=== PATIENT | female | born 1955 | race Caucasian/White ===

== ENCOUNTER → 2016-04-13 | Outpatient (CLI) | payer MEDICARE ==
--- NOTE | 2016-04-13 13:43 | REP ---
MRI BRAIN WITHOUT CONTRAST: 04/13/2016 COMPARISON: 12/25/2013 MRI without and with contrast. CLINICAL HISTORY: Follow-up meningioma. TECHNIQUE: Our standard noncontrast brain protocol was utilized . Sagittal and axial sequences only. FINDINGS: On the axial T2 images, the parasagittal parietal slightly hyperintense mass on the T2 images has a length of 32 mm, unchanged from the previous study. Its transverse diameter is approximately 27 mm on this exam about 26 mm x my direct measurement on the previous study in coronal contrast sequence. There is no midline shift. Lateral ventricles are symmetric and without dilatation or displacement from the midline, third and fourth ventricles also unremarkable. The basal ganglia are unremarkable. The periventricular and subcortical white matter shows some scattered minor hyperintense T2 and FLAIR signal foci suggesting small vessel ischemic change. There is no evidence of acute ischemia on diffusion weighted images or the ADC mapping sequences. The absence of contrast and coronal images limit evaluation of the meningioma. It is grossly unchanged in size given these limitations. There are no other extra-axial masses or intracranial lesions. The brainstem and cerebellum grossly intact. Cortical stripe preserved with no mass or mass effect. No intra or extra-axial bleed. Seventh/eighth cranial nerve complexes, mastoids and visualized sinuses are clear. Orbits and contents unremarkable. The corpus callosum, optic chiasm and pituitary are intact. There is no cerebellar tonsillar ectopia. IMPRESSION: 1. Parasagittal right parietal meningioma in the extra-axial location at the vertex of the brain although direct comparison is difficult in the absence of contrast and an additional coronal sequence. The appearance of the lesion overall is grossly unchanged. Its relationship to the sagittal sinus cannot be discerned on this study. No other extra-axial or intracranial lesions. 2. Chronic small vessel white matter ischemic changes noted and stable. Signed by Declan Riley MD 04/13/2016 02:30 P
== END ==
LOC: M RAD 07:51
PROVIDERS: ATTEND Psychiatry & Neurology Neurology
DX: D32.9 Benign neoplasm of meninges, unspecified (principal); I73.9 Peripheral vascular disease, unspecified; M54.12 Radiculopathy, cervical region; M54.16 Radiculopathy, lumbar region

== ENCOUNTER → 2016-04-17 | Outpatient (CLI) | payer MEDICARE ==
--- NOTE | 2016-04-17 17:42 | REP ---
MRI CERVICAL SPINE WITHOUT CONTRAST: 04/17/2016. Comparison: MRI 08/10/2014, x-ray 02/12/2014. Clinical history: Neck pain, radiculopathy. Technique sagittal T1, T2 and STIR images with axial T1-T2 sequences provided. The x-rays from 2013 show anterior plate and screw fixation going at least from C5 through T1 and posterior fusion with screws and arch bars from C4 through the upper thoracic spine to T3. There is magnetic susceptibility artifact from the screws and plate anteriorly. There is also posterior postoperative change with some susceptibility artifact. Vertebral body heights from C2-C4 were intact. Disc space heights at C2-3 through C4-5 were maintained. Although there is loss of disc water signal. Screws project into the C5 through T2 levels on this field of view and from anterior and their posterior paraspinal fusion devices with susceptibility artifact as well. The cervical cord shows no intrinsic signal abnormality, syrinx, myelomalacia or mass. The craniocervical junction shows no cerebellar tonsillar ectopia. The dens is intact. At C2-C3 there is no disc bulge or herniation and no spinal or foraminal stenosis. At C3-4 mild disc bulge with some facet arthritis. The cross-sectional area of the canal mildly diminished without cord compression. The AP canal diameter is about 9 mm. The foramina are mildly stenotic bilaterally due to combined factors. At C4-5 there is mild disc bulge abutting the ventral thecal sac flattening it and thinning the subarachnoid space. There is central canal stenosis with AP canal diameter just under 8 mm. Foramina are adequate on the left and mildly stenotic on the right due to combined factors. At C5-C6 there is a left paracentral posterior osteophytic spur and flattening of the ventral thecal sac with some loss of subarachnoid space. The AP canal diameter is 8.5 mm mildly stenotic. Foramina show some mild encroachment due to uncinate and facet spurs. At C6-7 there is no significant disc bulge but cross-sectional area canal is stenotic with loss of subarachnoid space. The foramina is adequate. A C7-T1, there is no significant disc bulge but there is some mild central canal stenosis with loss of subarachnoid space. Foramina were adequate. Impression: 1. Multilevel degenerative disc disease with C5 through upper thoracic anterior fusion with plate and screw fixation and posterior effusion as well. The central canal is mildly stenotic without cord compression or disc herniation. Foramina are narrowed at C3-4 and on the right at C4-5, minimally at C5-6. No intrinsic cord signal abnormality, syrinx active cord atrophy, or mass. Signed by Declan iRley MD 04/20/2016 10:18 A
--- NOTE | 2016-04-17 18:23 | REP ---
MRI LUMBAR SPINE WITHOUT CONTRAST: 04/17/2016: Comparison: 02/01/2015 MR, 11/27/2013 x-ray. Clinical history: Spondylosis without myelopathy. Technique: Sagittal T1, T2, STIR with axial T1-T2 sequences. Findings: Sagittal images show the normal lumbar lordosis maintained. Vertebral body heights and marrow signal are normal from T12-S2. Disc space heights are slightly narrowed at L3-4 and L5, S1 with loss of disc water signal at all levels from the L2-3 and relatively preserving T12-L1. Conus terminates at the level of L1-2. At T11-12 there is minimal disc bulge but no spinal or foraminal stenosis. At T12-L1 and L1-2. There is no disc bulge herniation and no spinal or foraminal stenosis. At L2-3 there is mild diffuse disc bulge without central canal stenosis. Mild hypertrophic facet and ligamentum changes without foraminal encroachment. At L3-L4 there is broad-based disc bulge. This abuts the left L4 nerve root in the canal but does not displace it. The AP canal diameter is mildly diminished but there is no significant crowding of the nerve roots. Foramina are adequate. That over -05. There is a broad-based disc bulge with ligamentum flavum and facet hypertrophy. Minimal enter anterolisthesis of L4 on five is noted with no change. Flattening the ventral thecal sac by a minimal disc bulge noted. Cross-sectional area of the canal is mildly diminished due to that and both ligamentum and facet hypertrophy. However the foramina appear adequate. At L5-S1 there is a minimal disc bulge without spinal or foraminal stenosis. Facet hypertrophy noted. IMPRESSION: 1. Degenerative disc disease with diffuse disc bulges throughout the lumbar spine without spinal or foraminal stenosis L1-2 through L3-4. Mild central canal stenosis at the L4-5 level is again seen. However, the combined factors are unchanged and the canal stenosis is mild without nerve root compression. Signed by Declan Riley MD 04/20/2016 10:18 A
== END ==
LOC: M RAD 15:16
PROVIDERS: ATTEND Psychiatry & Neurology Neurology
DX: M50.20 Other cervical disc displacement, unspecified cervical region (principal); M48.02 Spinal stenosis, cervical region; M51.36 Other intervertebral disc degeneration, lumbar region; M51.26 Other intervertebral disc displacement, lumbar region; M48.06 Spinal stenosis, lumbar region; M54.12 Radiculopathy, cervical region; M54.16 Radiculopathy, lumbar region; D32.9 Benign neoplasm of meninges, unspecified; Z98.1 Arthrodesis status

== ENCOUNTER → 2016-04-28 | Outpatient (CLI) | payer MEDICARE ==
[2016-04-28 20:06] LABS: VITAMIN B12 LEVEL 368 PG/ML (247-911)
[2016-04-28 20:07] LABS: FOLATE 12.1 NG/ML (>5.4)
[2016-04-28 20:11] LABS: ALBUMIN 3.7 GM/DL (3.2-5.2); ALBUMIN/GLOBULIN RATIO 1.06 (1.00-1.93); ALKALINE PHOSPHATASE 89 U/L (45-117); ALT/SGPT 57 U/L (12-78); ANION GAP 11 MEQ/L (8-16); AST/SGOT 47 U/L (15-37); BILIRUBIN,TOTAL 0.4 MG/DL (0.2-1.0); BLOOD UREA NITROGEN 20 MG/DL (7-18); CALCIUM LEVEL 9.3 MG/DL (8.5-10.1); CARBON DIOXIDE LEVEL 28 MEQ/L (21-32); CHLORIDE LEVEL 99 MEQ/L (98-107); GLOMERULAR FILTRATION RATE > 60.0 (>51); GLUCOSE, FASTING 135 MG/DL (70-105); POTASSIUM SERUM 4.6 MEQ/L (3.5-5.1); SODIUM LEVEL 138 MEQ/L (136-145); TOTAL PROTEIN 7.2 GM/DL (6.4-8.2)
[2016-04-30 10:57] LABS: ALBUMIN 3.94 GM/DL (3.29-5.55); ALBUMIN % 54.7 % (55.8-66.1); GAMMA GLOBULIN % 12.3 % (11.1-18.8)
[2016-05-02 14:20] LABS: VITAMIN E LEVEL 8.8 mg/L (5.3-16.8)
== END ==
LOC: M SMT 12:35
PROVIDERS: ATTEND Psychiatry & Neurology Neurology
DX: G62.9 Polyneuropathy, unspecified (principal); E11.9 Type 2 diabetes mellitus without complications; R53.83 Other fatigue; M62.81 Muscle weakness (generalized)

== ENCOUNTER → 2016-04-28 | Outpatient (CLI) | payer MEDICARE ==
[2016-04-28 19:57] LABS: BASO % 0.4 % (0.0-1.0); EOS # 0.2 K/mm3 (0.0-0.50); EOS % 2.4 % (0.0-3.0); LARGE UNSTAINED CELL # 0.2 K/mm3 (0.0-0.4); LARGE UNSTAINED CELL % 2.6 % (0.0-4.0); LYMPH # 1.3 K/mm3 (1.5-4.5); LYMPH % 19.8 % (24.0-44.0); MEAN CORPUSCULAR HEMOGLOBIN 26.7 pg (27.0-33.0); MEAN CORPUSCULAR VOLUME 86.2 fl (80.0-96.0); MONO # 0.3 K/mm3 (0.0-0.8); MONO % 4.6 % (0.0-5.0); NEUTROPHILS # 4.6 K/mm3 (1.8-7.7); NEUTROPHILS % 70.2 % (36.0-66.0); PLATELET COUNT, AUTOMATED 310 k/mm3 (150-450); RED CELL DISTRIBUTION WIDTH 14.2 % (11.5-14.5); WHITE BLOOD COUNT 6.6 K/mm3 (4.0-10.0)
[2016-04-28 20:16] LABS: FOLATE 10.2 NG/ML (>5.4); VITAMIN B12 LEVEL 378 PG/ML (247-911)
[2016-04-28 20:18] LABS: ERYTHROCYTE SEDIMENTATION RATE 54 mm/hr (0-30)
[2016-04-28 20:35] LABS: ANION GAP 15 MEQ/L (8-16); BLOOD UREA NITROGEN 22 MG/DL (7-18); CALCIUM LEVEL 9.5 MG/DL (8.5-10.1); CARBON DIOXIDE LEVEL 25 MEQ/L (21-32); CHLORIDE LEVEL 99 MEQ/L (98-107); CREATININE FOR GFR 0.97 MG/DL (0.55-1.02); FREE T4 1.43 NG/DL (0.76-1.46); GLOMERULAR FILTRATION RATE > 60.0 (>51); GLUCOSE, FASTING 141 MG/DL (70-105); POTASSIUM SERUM 4.3 MEQ/L (3.5-5.1); SODIUM LEVEL 139 MEQ/L (136-145)
== END ==
LOC: M SMT 12:31
PROVIDERS: ATTEND Physician Assistant Medical
DX: E11.9 Type 2 diabetes mellitus without complications (principal); R53.83 Other fatigue; M62.81 Muscle weakness (generalized); R20.2 Paresthesia of skin

== ENCOUNTER → 2016-04-29 | Outpatient (REF) | payer MEDICARE | LOC: M LAB REF 16:48 | PROVIDERS: ATTEND Physician Assistant Medical | DX: E11.9 Type 2 diabetes mellitus without complications (principal); R53.83 Other fatigue; M62.81 Muscle weakness (generalized); R20.2 Paresthesia of skin ==

== ENCOUNTER → 2017-01-22 | Outpatient (CLI) | payer MEDICARE ==
[2017-01-22 14:34] LABS: ALBUMIN 3.7 GM/DL (3.2-5.2); ALKALINE PHOSPHATASE 92 U/L (45-117); ALT/SGPT 70 U/L (12-78); ANION GAP 11 MEQ/L (8-16); AST/SGOT 35 U/L (7-37); BILIRUBIN,TOTAL 0.3 MG/DL (0.2-1.0); BLOOD UREA NITROGEN 20 MG/DL (7-18); CALCIUM LEVEL 9.6 MG/DL (8.8-10.2); CARBON DIOXIDE LEVEL 28 MEQ/L (21-32); CHLORIDE LEVEL 101 MEQ/L (98-107); CHOLESTEROL LEVEL 218 MG/DL (<200); CREATININE FOR GFR 0.91 MG/DL (0.55-1.02); GLOMERULAR FILTRATION RATE > 60.0 (>45); GLUCOSE, FASTING 134 MG/DL (80-110); POTASSIUM SERUM 4.7 MEQ/L (3.5-5.1); SODIUM LEVEL 140 MEQ/L (136-145); TOTAL PROTEIN 7.4 GM/DL (6.4-8.2); TRIGLYCERIDES LEVEL 244 MG/DL (<150)
== END ==
LOC: M SMT 10:29
PROVIDERS: ATTEND Physician Assistant Medical
DX: Z00.00 Encounter for general adult medical examination without abnormal findings (principal); E11.9 Type 2 diabetes mellitus without complications; I10 Essential (primary) hypertension; E78.5 Hyperlipidemia, unspecified

== ENCOUNTER → 2017-01-28 | Outpatient (CLI) | payer MEDICARE ==
--- NOTE | 2017-01-28 13:50 | REP ---
Clinical: Pain with decreased range of motion. Technique: AP, lateral, bilateral oblique views of the left knee. Comparison: Right knee dated 12/01/2012. Findings: Advanced tricompartmental osteoarthritic degenerative changes includes osteophytosis, subchondral sclerosis and joint space narrowing. Small suprapatellar effusion cannot be excluded. No acute fracture or dislocation. Impression: Advanced tricompartmental osteoarthritic degenerative changes. Signed by Alek Cali MD 01/28/2017 01:41 P
== END ==
LOC: M SMT 12:22
PROVIDERS: ATTEND Physician Assistant Medical
DX: M25.562 Pain in left knee (principal)

== ENCOUNTER 2018-01-10 13:10 | Emergency (ER) | payer MEDICARE ==
[2018-01-10] MEDS: NORCO, ANEXSIA 5/325MG TABLET (HYDROcodone/ACETAMINOPHEN) PO (14:10)
== END 2018-01-10 16:37 | disposition home or self-care (01) ==
LOC: M ED 13:10
DX: S80.02XA Contusion of left knee, initial encounter (principal); W19.XXXA Unspecified fall, initial encounter; Y92.099 Unspecified place in other non-institutional residence as the place of occurrence of the external cause; Y93.69 Activity, other involving other sports and athletics played as a team or group; Y99.9 Unspecified external cause status; I51.9 Heart disease, unspecified; I10 Essential (primary) hypertension; M79.7 Fibromyalgia; M25.752 Osteophyte, left hip; M25.762 Osteophyte, left knee; M25.462 Effusion, left knee; Z79.899 Other long term (current) drug therapy
CPT/HCPCS: 73564

== ENCOUNTER → 2018-07-11 | Outpatient (REF) | payer MEDICARE ==
[~2018-07-11] MED LIST: ATOR1TAB19; DULO1CAP3; FURO40TA2; LISI10TA4; LYRI150C; MORP30TASA
[2018-07-11 19:05] LABS: ALBUMIN 3.6 GM/DL (3.2-5.2); BILIRUBIN,TOTAL 0.3 MG/DL (0.2-1.0); CALCIUM LEVEL 9.3 MG/DL (8.8-10.2); CHOLESTEROL RISK RATIO 5.323 (<5); CREATININE FOR GFR 1.02 MG/DL (0.55-1.30); GLOMERULAR FILTRATION RATE 58.7 (>45); POTASSIUM SERUM 4.1 MEQ/L (3.5-5.1); TOTAL PROTEIN 7.3 GM/DL (6.4-8.2)
[2018-07-11 19:07] LABS: BASO % 0.3 % (0.0-1.0); EOS # 0.2 10^3/uL (0.0-0.50); EOS % 2.5 % (0.0-3.0); HEMATOCRIT 40.4 % (36.0-47.0); LYMPH # 2.1 10^3/uL (1.5-4.5); LYMPH % 21.6 % (24.0-44.0); MEAN CORPUSCULAR HEMOGLOBIN 27.3 pg (27.0-33.0); MEAN CORPUSCULAR HGB CONC 32.2 g/dl (32.0-36.5); MEAN CORPUSCULAR VOLUME 84.7 fl (80.0-96.0); MONO # 0.5 10^3/uL (0.0-0.8); MONO % 5.4 % (0.0-5.0); NEUTROPHILS # 6.7 10^3/uL (1.8-7.7); NEUTROPHILS % 69.9 % (36.0-66.0); PLATELET COUNT, AUTOMATED 309 10^3/uL (150-450); RED BLOOD COUNT 4.77 10^6/uL (4.00-5.40); WHITE BLOOD COUNT 9.5 10^3/uL (4.0-10.0)
== END ==
LOC: M LABDRAW1 17:59
PROVIDERS: ATTEND Physician Assistant Medical
DX: E11.40 Type 2 diabetes mellitus with diabetic neuropathy, unspecified (principal)

== ENCOUNTER → 2018-12-22 | Outpatient (CLI) | payer MEDICARE ==
[~2018-12-22] MED LIST changes: -DULO1CAP3; +DULO1CAP6
--- NOTE | 2018-12-22 16:08 | REP ---
Low-dose lung screening CT of the chest: There are no comparisons. The study is performed without IV contrast. The images are presented at lung windowing only. There are no lung masses or nodules. There are no infiltrates or pleural effusions. Impression: Category one low-dose lung screening chest CT. The probability of malignancy is less than 1%. Depending on risk factors consider annual follow-up low-dose lung screening CT. Electronically Signed by Cristi Miller MD 12/22/2018 03:59 P
== END ==
LOC: M RAD 15:04
PROVIDERS: ATTEND Physician Assistant Medical
DX: Z12.2 Encounter for screening for malignant neoplasm of respiratory organs (principal); Z87.891 Personal history of nicotine dependence

== ENCOUNTER → 2019-01-11 | Outpatient (REF) | payer MEDICARE | LOC: M SFHCPLAZ 11:47 | PROVIDERS: ATTEND Dermatology | DX: C44.311 Basal cell carcinoma of skin of nose (principal); D23.62 Other benign neoplasm of skin of left upper limb, including shoulder | CPT/HCPCS: 11102; 11103; 88305; G0463 ==

== ENCOUNTER → 2019-02-01 | Outpatient (REF) | payer MEDICARE | LOC: M LAB REF 09:46 | PROVIDERS: ATTEND Dermatology | DX: C44.311 Basal cell carcinoma of skin of nose (principal) ==

== ENCOUNTER → 2019-02-07 | Outpatient (REF) | payer MEDICARE | LOC: M LAB REF 17:52 | PROVIDERS: ATTEND Dermatology | DX: L01.00 Impetigo, unspecified (principal) ==

== ENCOUNTER → 2019-03-17 | Outpatient (REF) | payer MEDICARE | LOC: M LAB REF 18:51 | PROVIDERS: ATTEND Dermatology | DX: T14.90XD Injury, unspecified, subsequent encounter (principal) | CPT/HCPCS: 87070; 87077; 87186; G0463 ==

== ENCOUNTER → 2019-04-06 | Outpatient (REF) | payer MEDICARE | LOC: M LAB REF 09:05 | PROVIDERS: ATTEND Dermatology | DX: D48.9 Neoplasm of uncertain behavior, unspecified (principal) | CPT/HCPCS: 11102; 88305; G0463 ==

== ENCOUNTER → 2019-12-06 | Outpatient (CLI) | payer MEDICARE ==
[2019-12-06 18:00] LABS: BASO % 0.4 % (0.0-1.0); EOS # 0.3 10^3/uL (0.0-0.5); HEMATOCRIT 41.1 % (36.0-47.0); HEMOGLOBIN 12.8 g/dl (12.0-15.5); LYMPH # 1.7 10^3/uL (1.5-5.0); LYMPH % 20.5 % (24.0-44.0); MEAN CORPUSCULAR HEMOGLOBIN 27.2 pg (27.0-33.0); MEAN CORPUSCULAR HGB CONC 31.1 g/dl (32.0-36.5); MEAN CORPUSCULAR VOLUME 87.4 fl (80.0-96.0); MONO # 0.4 10^3/uL (0.0-0.8); MONO % 4.9 % (0.0-5.0); NEUTROPHILS # 5.9 10^3/uL (1.5-8.5); NEUTROPHILS % 70.8 % (36.0-66.0); PLATELET COUNT, AUTOMATED 297 10^3/uL (150-450); WHITE BLOOD COUNT 8.4 10^3/uL (4.0-10.0)
[2019-12-06 18:21] LABS: HEMOGLOBIN A1c 8.4 %
[2019-12-06 18:23] LABS: ALBUMIN 3.4 GM/DL (3.2-5.2); ALT/SGPT 57 U/L (12-78); BILIRUBIN,TOTAL 0.2 MG/DL (0.2-1.0); BLOOD UREA NITROGEN 16 MG/DL (7-18); CALCIUM LEVEL 9.5 MG/DL (8.8-10.2); CARBON DIOXIDE LEVEL 27 MEQ/L (21-32); CHLORIDE LEVEL 100 MEQ/L (98-107); CHOLESTEROL LEVEL 194 MG/DL (<200); CHOLESTEROL RISK RATIO 5.705 (<5); CREATININE FOR GFR 0.97 MG/DL (0.55-1.30); GLOMERULAR FILTRATION RATE > 60.0 (>45); GLUCOSE, FASTING 299 MG/DL (70-100); HDL CHOLESTEROL 34 MG/DL (>40); LDL CHOLESTEROL 105 MG/DL (<100); NON-HDL-C 160 MG/DL; POTASSIUM SERUM 4.1 MEQ/L (3.5-5.1); RHEUMATOID FACTOR QUANT < 10.0 IU/ML (<15.0); SODIUM LEVEL 136 MEQ/L (136-145); TOTAL PROTEIN 7.5 GM/DL (6.4-8.2); TRIGLYCERIDES LEVEL 273 MG/DL (<150)
[2019-12-06 18:55] LABS: ERYTHROCYTE SEDIMENTATION RATE 58 mm/hr (0-30)
[2019-12-08 15:07] LABS: ANTINUCLEAR ANTIBODIES DIRECT Negative (Negative)
== END ==
LOC: M PLALAB 15:47
PROVIDERS: ATTEND Family Medicine
DX: E11.40 Type 2 diabetes mellitus with diabetic neuropathy, unspecified (principal); M12.9 Arthropathy, unspecified

== ENCOUNTER 2020-02-10 21:41 | Emergency (ER) | payer MEDICARE ==
[~2020-02-10] VITALS: Ht 175.3 cm; Wt 137.3 kg
[2020-02-10] MEDS ORDERED: MOBI4TAB PO (21:58)
[2020-02-10] MEDS ORDERED: OXYC10TA3 PO (21:58)
[2020-02-10] MEDS ORDERED: SM LTAB5 PO (21:58)
[2020-02-10] MEDS ORDERED: DILT1CAP9 PO (21:58)
[2020-02-10] MEDS ORDERED: GLIP10TA PO (21:58)
[2020-02-10] MEDS ORDERED: METF10004 PO (21:58)
[2020-02-10 22:53] LABS: BASO % 0.3 % (0.0-1.0); EOS # 0.2 10^3/uL (0.0-0.5); EOS % 2.1 % (0.0-3.0); HEMATOCRIT 42.1 % (36.0-47.0); HEMOGLOBIN 13.2 g/dl (12.0-15.5); LYMPH # 1.7 10^3/uL (1.5-5.0); LYMPH % 14.8 % (24.0-44.0); MEAN CORPUSCULAR HEMOGLOBIN 26.6 pg (27.0-33.0); MEAN CORPUSCULAR HGB CONC 31.4 g/dl (32.0-36.5); MEAN CORPUSCULAR VOLUME 84.9 fl (80.0-96.0); MONO # 0.5 10^3/uL (0.0-0.8); MONO % 4.7 % (0.0-5.0); NEUTROPHILS # 8.9 10^3/uL (1.5-8.5); NEUTROPHILS % 77.8 % (36.0-66.0); PLATELET COUNT, AUTOMATED 348 10^3/uL (150-450); RED BLOOD COUNT 4.96 10^6/uL (4.00-5.40); WHITE BLOOD COUNT 11.4 10^3/uL (4.0-10.0)
--- NOTE | 2020-02-10 23:01 | REPVR ---
PROCEDURE INFORMATION: Exam: CT Head Without Contrast Exam date and time: 02/10/2020 10:47 PM Age: 65 years old Clinical indication: Condition or disease; Convulsions or seizures; Additional info: HX of brain tumor, new onset partial seizures TECHNIQUE: Imaging protocol: Computed tomography of the head without contrast. Radiation optimization: All CT scans at this facility use at least one of these dose optimization techniques: automated exposure control; mA and/or kV adjustment per patient size (includes targeted exams where dose is matched to clinical indication); or iterative reconstruction. COMPARISON: MRI-Brain without Contrast 04/13/2016 8:28 AM FINDINGS: Brain: No acute intracranial hemorrhage or midline shift. Meningioma at the high right frontal convexity on prior MRI is poorly visualized secondary to technique. There is now mild vasogenic edema at the right frontal lobe. No midline shift. Cerebral ventricles: No hydrocephalus. Bones/joints: Hyperostosis frontalis interna. Paranasal sinuses: Visualized sinuses are unremarkable. No fluid levels. Mastoid air cells: Visualized mastoid air cells are well aerated. Soft tissues: Unremarkable. IMPRESSION: 1. No acute intracranial hemorrhage. 2. Meningioma demonstrated on prior MRI examination is poorly demonstrated on current study secondary to technique. There is however new mild vasogenic edema at the right frontal lobe. Electronically signed by: Tramaine Saini On 02/10/2020 23:01:12 PM
[2020-02-10] MEDS ORDERED: LORazepam 2 MG/ML VIAL IV STA (23:15)
[2020-02-10 23:29] LABS: BLOOD UREA NITROGEN 13 MG/DL (7-18); CARBON DIOXIDE LEVEL 26 MEQ/L (21-32); CHLORIDE LEVEL 101 MEQ/L (98-107); CK-MB VALUE MASS < 1.0 NG/ML (<3.6); CPK CREATINE PHOSPHOKINASE 94 U/L (26-192); CREATININE FOR GFR 0.98 MG/DL (0.55-1.30); GLOMERULAR FILTRATION RATE > 60.0 (>45); GLUCOSE, FASTING 255 MG/DL (70-100); MAGNESIUM LEVEL 1.5 MG/DL (1.8-2.4); MB/CK RELATIVE INDEX 1.06 (< OR =4); POTASSIUM SERUM 4.5 MEQ/L (3.5-5.1); SODIUM LEVEL 136 MEQ/L (136-145); TROPONIN I < 0.02 NG/ML (< 0.10)
[2020-02-10] MEDS ORDERED: PERCOCET 5MG/325MG TAB PO ONE (23:45)
--- NOTE | 2020-02-11 01:17 | REPVR ---
PROCEDURE INFORMATION: Exam: MR Head Without Contrast Exam date and time: 02/10/2020 12:39 AM Age: 65 years old Clinical indication: Other: PT states for the last 3 months has had a number of times where left leg constantly moves, left arm retracts and she becomes stiff as a board and feels like she cant breath; Additional info: New onset seizure, edema seen on CT TECHNIQUE: Imaging protocol: MR of the head without contrast. COMPARISON: CT Head without contrast 02/10/2020 10:43 PM FINDINGS: Ventricles demonstrate normal size and configuration for age. Major vascular flow voids at the skull base are preserved. No extra-axial fluid collection. Nonspecific white matter gliosis, probable chronic microvascular ischemia. Meningioma at the superior right cerebral convexity at the vertex measures 4.8 cm AP by 3.3 cm transverse by 2.1 cm cc. Suspect invasion of the adjacent superior sagittal sinus. There is mild adjacent vasogenic edema which is new from prior examination. No diffusion restriction. Visualized paranasal sinuses and mastoid air cells are clear. IMPRESSION: 1. Right-sided meningioma superiorly at the vertex measures 4.8 x 3.3 x 2.1 cm, increased. 2. Suspect invasion of the adjacent superior sagittal sinus best demonstrated on the coronal T2 weighted sequence. 3. There is adjacent vasogenic edema which is new from prior examination. Electronically signed by: Tramaine Saini On 02/11/2020 01:16:59 AM
[2020-02-11] MEDS ORDERED: KEPP1TAB PO (02:09)
[2020-02-11] MEDS ORDERED: levETIRAcetam 250MG TABLET (KEPPRA) PO ONE (02:15)
[2020-02-11 02:30] VITALS: BP 133/76
--- NOTE | 2020-02-12 11:00 | ED PDOC ---
Post-Departure Follow-Up ct head, mri brain faxed to dr lazaro, dr perera, dr bowles for Ezio Thrasher MD Feb 12, 2020 11:00
== END 2020-02-11 02:51 | disposition home or self-care (01) ==
LOC: M ED 21:41
DX: G40.109 Localization-related (focal) (partial) symptomatic epilepsy and epileptic syndromes with simple partial seizures, not intractable, without status epilepticus (principal); C70.0 Malignant neoplasm of cerebral meninges; E11.9 Type 2 diabetes mellitus without complications; I10 Essential (primary) hypertension; G62.9 Polyneuropathy, unspecified; M79.7 Fibromyalgia; Z79.899 Other long term (current) drug therapy; Z79.84 Long term (current) use of oral hypoglycemic drugs
CPT/HCPCS: 36415; 70450; 70551; 80048; 82550; 82553; 83735; 84484; 85025; 96374; 99284; J2060

== ENCOUNTER → 2020-02-23 | Outpatient (CLI) | payer MEDICARE ==
[~2020-02-23] MED LIST changes: +DILT1CAP9 PO; +GLIP10TA PO; +KEPP1TAB PO; +METF10004 PO; +MOBI4TAB PO; +OXYC10TA3 PO; +SM LTAB5 PO
[2020-02-23 18:04] LABS: HEMOGLOBIN A1c 9.5 %
[2020-02-23 18:06] LABS: BLOOD UREA NITROGEN 16 MG/DL (7-18); CREATININE FOR GFR 0.99 MG/DL (0.55-1.30); GLOMERULAR FILTRATION RATE > 60.0 (>45)
== END ==
LOC: M PLALAB 15:49
PROVIDERS: ATTEND Neurological Surgery
DX: D32.9 Benign neoplasm of meninges, unspecified (principal); E11.40 Type 2 diabetes mellitus with diabetic neuropathy, unspecified

== ENCOUNTER → 2020-04-26 | Outpatient (CLI) | payer MEDICARE ==
[~2020-04-26] MED LIST changes: +LISI10TA22; -LISI10TA4
[2020-04-26 18:23] LABS: ALBUMIN 3.7 GM/DL (3.2-5.2); CALCIUM LEVEL 9.9 MG/DL (8.8-10.2); CREATININE FOR GFR 1.31 MG/DL (0.55-1.30); GLOMERULAR FILTRATION RATE 43.7 (>45); MAGNESIUM LEVEL 1.8 MG/DL (1.8-2.4); PHOSPHORUS LEVEL 3.5 MG/DL (2.5-4.9); POTASSIUM SERUM 5.5 MEQ/L (3.5-5.1)
== END ==
LOC: M PLALAB 15:10
PROVIDERS: ATTEND Internal Medicine Cardiovascular Disease
DX: I10 Essential (primary) hypertension (principal)

== ENCOUNTER → 2020-06-06 | Outpatient (REF) | payer MEDICARE ==
[2020-06-06 18:13] LABS: ALBUMIN 4.1 GM/DL (3.2-5.2); CALCIUM LEVEL 9.8 MG/DL (8.8-10.2); CREATININE FOR GFR 1.21 MG/DL (0.55-1.30); GLOMERULAR FILTRATION RATE 47.8 (>45); PHOSPHORUS LEVEL 3.6 MG/DL (2.5-4.9); POTASSIUM SERUM 4.6 MEQ/L (3.5-5.1)
== END ==
LOC: M LAB REF 16:41 → M PLALAB 16:41
PROVIDERS: ATTEND Internal Medicine Cardiovascular Disease
DX: R60.0 Localized edema (principal); N19 Unspecified kidney failure

== ENCOUNTER 2020-08-09 20:56 | Emergency (ER) | payer MEDICARE ==
[~2020-08-09] VITALS: Ht 172.7 cm; Wt 127.3 kg
[~2020-08-09 20:56] MED LIST changes: +BUPR10DI3 TD; +KETO10TAB PO; +LANTINJ4 SUBQ
[2020-08-09 21:41] VITALS: BP 178/79
== END 2020-08-09 22:22 | disposition left against medical advice (07) ==
LOC: M ED 20:56
DX: Z53.29 Procedure and treatment not carried out because of patient's decision for other reasons (principal)

== ENCOUNTER → 2020-08-14 | Outpatient (REF) | payer MEDICARE ==
[2020-08-14 18:14] LABS: ALBUMIN 3.8 GM/DL (3.2-5.2); ALT/SGPT 32 U/L (12-78); BILIRUBIN,TOTAL 0.4 MG/DL (0.2-1.0); BLOOD UREA NITROGEN 15 MG/DL (7-18); CALCIUM LEVEL 9.7 MG/DL (8.8-10.2); CARBON DIOXIDE LEVEL 30 MEQ/L (21-32); CHLORIDE LEVEL 96 MEQ/L (98-107); CREATININE FOR GFR 0.91 MG/DL (0.55-1.30); GLOMERULAR FILTRATION RATE > 60.0 (>45); GLUCOSE, FASTING 387 MG/DL (70-100); POTASSIUM SERUM 3.8 MEQ/L (3.5-5.1); SODIUM LEVEL 135 MEQ/L (136-145); TOTAL PROTEIN 7.9 GM/DL (6.4-8.2)
[2020-08-14 18:57] LABS: HEMOGLOBIN A1c 12.1 %
== END ==
LOC: M PLALAB 16:57
PROVIDERS: ATTEND Nurse Practitioner Family
DX: E11.40 Type 2 diabetes mellitus with diabetic neuropathy, unspecified (principal)

== ENCOUNTER → 2020-08-20 | Outpatient (CLI) | payer MEDICARE ==
--- NOTE | 2020-08-20 16:13 | REP ---
INDICATION: RADICULOPATHY. COMPARISON: None. FINDINGS: The superior mediastinal structures are midline. The cardiac silhouette is unremarkable in size, shape, and position. The diaphragmatic surfaces of the lungs are regular, and the costophrenic angles are clear. The pulmonary diego are clear. Lower cervical and upper thoracic spine fixation is noted. This is both anterior and posterior. The osseous structures are otherwise unremarkable IMPRESSION: There is no acute cardiopulmonary disease. <Electronically signed by Gurpreet Michelle > 08/20/20 [id number]
--- NOTE | 2020-08-20 18:57 | REPVR ---
PROCEDURE INFORMATION: Exam: MR Cervical Spine Without Contrast Exam date and time: 08/20/2020 3:09 PM Age: 65 years old Clinical indication: Neck pain; Additional info: Radiculopathy TECHNIQUE: Imaging protocol: Multiplanar magnetic resonance images of the cervical spine without contrast. COMPARISON: MRI-Spine,Cervical without con 04/17/2016 3:51 PM FINDINGS: Study is limited by artifact arising from metallic fusion hardware. Vertebral body height and AP alignment is preserved. Nonspecific straightening. There is extensive prior cervicothoracic fusion including both anterior and posterior fusion hardware. No definite abnormal cord signal or cord expansion. No epidural fluid collection. No evidence of discitis/osteomyelitis. C2-C3: No significant central or foraminal stenosis. C3-C4: Mild disc osteophyte complex with bilateral uncinate spurring and facet joint arthropathy. No significant central canal stenosis. There is moderate bilateral foraminal stenosis. C4-C5: No significant central or foraminal stenosis. C5-C6: There is posterior endplate ridging eccentric towards the left side with left greater than right uncinate spurring. No significant central canal stenosis. There is moderate to severe left foraminal stenosis. C6-C7: Mild posterior endplate ridging without definite significant central or foraminal stenosis. C7-T1: No definite significant central or foraminal stenosis. IMPRESSION: 1. Study is limited by susceptibility artifact arising from extensive cervicothoracic metallic fusion hardware. 2. No definite acute abnormality to the degree visualized. 3. Degenerative findings as above without significant central canal compromise or cord compression. Electronically signed by: Tramaine Saini On 08/20/2020 18:56:32 PM
== END ==
LOC: M RAD 14:01
PROVIDERS: ATTEND Nurse Practitioner Family
DX: M48.02 Spinal stenosis, cervical region (principal); M25.78 Osteophyte, vertebrae; M12.88 Other specific arthropathies, not elsewhere classified, other specified site; Z98.1 Arthrodesis status; R06.02 Shortness of breath

== ENCOUNTER → 2020-09-12 | Outpatient (CLI) | payer MEDICARE ==
--- NOTE | 2020-09-19 00:01 | ECWPNPC ---
PATIENT NAME: TESSY ROBERTSON : 1955 GENDER: FEMALE VISIT DATE: 09/12/2020 DISCHARGE DATE: 09/12/20 1555 VISIT LOCKED DATE TIME: PHYSICIAN: HIRAL TELLEZ RESOURCE: HIRAL TELLEZ REASON FOR APPOINTMENT 1. CHRONIC PAIN HISTORY OF PRESENT ILLNESS DEPRESSION SCREENING: PHQ-9 LITTLE INTEREST OR PLEASURE IN DOING THINGSNEARLY EVERY DAY FEELING DOWN, DEPRESSED, OR HOPELESSNEARLY EVERY DAY TROUBLE FALLING OR STAYING ASLEEP, OR SLEEPING TOO MUCHNEARLY EVERY DAY FEELING TIRED OR HAVING LITTLE ENERGYNEARLY EVERY DAY POOR APPETITE OR OVEREATING SEVERAL DAYS FEELING BAD ABOUT YOURSELF-OR THAT YOU ARE A FAILURE OR HAVE LET YOURSELF OR YOUR FAMILY DOWN NOT AT ALL TROUBLE CONCENTRATING ON THINGS, SUCH READING THE NEWSPAPER OR WATCHING TELEVISION NEARLY EVERY DAY MOVING OR SPEAKING SO SLOWLY THAT OTHER PEOPLE COULD HAVE NOTICED. OR THE OPPOSITE- BEING SO FIDGETY OR RESTLESS THAT YOU HAVE BEEN MOVING AROUND A LOT MORE THAN USUALNEARLY EVERY DAY THOUGHTS THAT YOU WOULD BE BETTER OFF , OR OF HURTING YOURSELF IN SOME WAY?NEARLY EVERY DAY(CONSIDER SUICIDE ASSESSMENT RISK) TOTAL SCORE:22 INTERPRETATIONSEVERE DEPRESSION PHQ-2 (2015 EDITION) LITTLE INTEREST OR PLEASURE IN DOING THINGS?NEARLY EVERY DAY FEELING DOWN, DEPRESSED, OR HOPELESS?NEARLY EVERY DAY TOTAL SCORE6 GENERAL: PLEASANT 65-YEAR-OLD FEMALE BEING SEEN FOR INITIAL EVALUATION OF CHRONIC NECK AND LOW BACK PAIN. HISTORY OF CERVICAL SURGERY X2 A FEW YEARS AGO. REPORTS NO IMPROVEMENT POST SURGERY. HISTORY OF MULTIPLE COMORBIDITIES. 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 NEUROSURGEON IS REQUESTING CARDIAC CLEARANCE. PATIENT SUFFERS FROM SEIZURES WHICH MAY BE RELATED TO BRAIN TUMOR. WAS FOLLOWING WITH [facility] IN [place] FOR CHRONIC PAIN BUT WAS UNHAPPY WITH THEIR SERVICE AND ASKED TO BE SWITCHED HERE. DISCUSSED MEDICATION MANAGEMENT. SHE IS WHEELCHAIR DEPENDENT MAINLY. SHE HAS MARKED WEAKNESS OVER LEFT LOWER EXTREMITY. ACCOMPANIED IN THE EXAM ROOM WITH HER . DISCUSSED MEDICATION OPTIONS. DENIES BOWEL OR BLADDER INCONTINENCE. DENIES SADDLE PARESTHESIAS. WORST AREA OF PAIN IS IN HER NECK. - - -. FALL RISK SCREENING: SCREENING : NO FALLS REPORTED IN THE LAST YEAR . PAIN SCREENING: PATIENT HAS A COMPLAINT OF ACUTE OR CHRONIC PAIN :YES LOCATION OF PAIN:OTHER: ALL OVER INTENSITY OF PAIN (SCALE OF 1 TO 10):10 WHAT DOES YOUR PAIN FEEL LIKE:ACHING, BURNING, TENDER, THROBBING, SORE DURATION:CONTINOUS, CONSTANT, ALL DAY, AWAKENS FROM SLEEP PAIN IS INCREASED BY:ACTIVITIES PAIN IS DECREASED BY:USE OF PAIN MEDICATIONS PERCOCET NURSING NOTE: - - -. PAIN CENTER INTAKE QUESTIONS: DO YOU HAVE A HISTORY OF MRSA? :NO DO YOU TAKE A BLOOD THINNERS? :NO DO YOU HAVE ANY BLEEDING DISORDERS? :NO ANY NEW NUMBNESS OR WEAKNESS IN YOUR LEGS OR ARMS? :YES PAIN IN BOTH HAND- JOINT ANY PACEMAKER,DEFIBRILLATOR, OR DORSAL COLUMN STIMULATOR? :NO DO YOU HAVE ANY RASHES OR OPEN SORES? :NO ARE YOU ALLERGIC TO IV DYE? :NO ARE YOU DIABETIC? :YES TYPE 2 ANY NEW PROBLEMS WITH YOUR MEDICATIONS? :NO HAVE YOU RECEIVED A VACCINE IN THE PAST 30 DAYS? :NO DO YOU PLAN TO RECEIVE A VACCINE IN THE NEXT 21 DAYS? :NO DO YOU NEED ANY PRESCRIPTION? :NO DO YOU TAKE ANY IMMUNOSUPPRESSIVE MEDICATIONS? :NO IS THERE A CHANCE YOU COULD BE ? :NO ARE YOU BREAST FEEDING? :NO CURRENT MEDICATIONS TAKING DOXYCYCLINE HYCLATE 100 MG TABLET 1 TABLET ORALLY TWICE A DAY TAKING METFORMIN HCL 1000 MG TABLET 1 TABLET WITH A MEAL ORALLY TWICE A DAY TAKING HYDROCHLOROTHIAZIDE 25 MG TABLET 1 TABLET IN THE MORNING ORALLY ONCE A DAY TAKING LISINOPRIL 10 MG TABLET 1 TABLET ORALLY ONCE A DAY TAKING DILTIAZEM HCL ER 360 MG CAPSULE EXTENDED RELEASE 24 HOUR 1 CAPSULE ORALLY ONCE A DAY TAKING GLIPIZIDE 5 MG TABLET 1 TABLET 30 MINUTES BEFORE BREAKFAST ORALLY ONCE A DAY TAKING LYRICA 150 MG CAPSULE 1 CAPSULE ORALLY TID, NOTES: NOT SURE TAKING METAXALONE 800 MG TABLET 1 TABLET ORALLY QD TAKING DULOXETINE HCL 60 MG CAPSULE DELAYED RELEASE PARTICLES 1 CAPSULE ORALLY ONCE A DAY TAKING MELOXICAM 7.5 MG TABLET 1 TABLET ORALLY ONCE A DAY TAKING VALACYCLOVIR HCL 1 GM TABLET 1 TABLET ORALLY BID TAKING FUROSEMIDE 40 MG TABLET 1 TABLET ORALLY ONCE A DAY TAKING LANCETS 1 TAB ORAL TAKING LORATADINE 10 MG TABLET 1 TABLET ORALLY ONCE A DAY TAKING VITAMIN D 25 MCG (1000 UT) TABLET 1 TABLET ORALLY ONCE A DAY TAKING DILTIAZEM HCL ER BEADS 360 MG CAPSULE EXTENDED RELEASE 24 HOUR 1 CAPSULE ORALLY ONCE A DAY NOT-TAKING OXYCODONE-ACETAMINOPHEN 10-325 MG TABLET 1 TABLET NEEDED ORALLY EVERY 6 HRS NOT-TAKING NAPROXEN 250 MG TABLET 1 TABLET WITH FOOD OR MILK ORALLY TWICE A DAY NOT-TAKING MUPIROCIN 2 % OINTMENT 1 APPLICATION EXTERNALLY THREE TIMES A DAY NOT-TAKING CIPROFLOXACIN HCL 250 MG TABLET 1 TABLET ORALLY EVERY 12 HRS NOT-TAKING PREDNISONE 20 MG TABLET 1 TABLET ORALLY ONCE A DAY MEDICATION LIST REVIEWED AND RECONCILED WITH THE PATIENT PAST MEDICAL HISTORY DIABETIES TYPE II DIABETIC NEUROPATHY FIBROMYALGIA HTN NECK PAIN EX- SOMKER VITAMIN D DEFICIENCY HYPERLIPIDEMIA LEFT KNEE PAIN LEFT ELBOW PAIN ABRASION ON LEFT FOOT ADD- ADJUSTMENT DISORDER WITH RADICULOPATHY MYALGIA MUSCLE WEAKNESS CELLULITIS OF RIGHT LOWER LIMB BRAIN TUMOR RIGHT MODERNA 1ST: 05/17/2020 2ND: 06/14/2020 PATIENT SUFFERS FROM SEIZURES ALLERGIES N.K.D.A. SURGICAL HISTORY SPINAL FUSION SURGERY 5 YEARS AGO CERVICAL SURGERY X2 A FEW YEARS AGO FAMILY HISTORY FATHER: 75 YRS MOTHER: 71 YRS SIBLINGS: ALIVE SON(S): ALIVE DAUGHTER(S): ALIVE 2 SISTER(S) - HEALTHY. 1 SON(S) , 1 DAUGHTER(S) - HEALTHY. DENIES FH OF SKIN CANCER. SOCIAL HISTORY GENERAL: TOBACCO USE ARE YOU A:FORMER SMOKER HOW LONG HAS IT BEEN SINCE YOU LAST SMOKED?> 10 YEARS LATEX QUESTIONNAIRE LATEX ALLERGY : HAVE YOU EVER DEVELOPED ANY TYPE OF REACTION AFTER HANDLING LATEX PRODUCTS SUCH RUBBER GLOVES, CONDOMS, DIAPHRAGMS, BALLOONS, SOCKS, OR UNDERWEAR?NO LATEX ALLERGY : HAVE YOU EVER DEVELOPED ANY TYPE OF REACTION DURING OR AFTER DENTAL APPOINTMENT, VAGINAL/RECTAL EXAMINATION, SURGICAL PROCEDURE, OR ANY OTHER EXPOSURE?NO LATEX RISK : HAVE YOU EVER HAD ANY DIFFICULTY BREATHING OR HIVES AFTER EATING OR HANDLING ANY FRUITS, OR VEGETABLES; SUCH KIWI, BANANAS, STONE FRUITS, OR CHESTNUTSNO LATEX RISK : DO YOU HAVE A PREVIOUS PERSONAL HISTORY OF MORE THAN NINE SURGERIES, SPINA BIFIDA, OR REPEATED CATHERIZATIONS? NO LATEX RISK : ARE YOU FREQUENTLY EXPOSED TO LATEX PRODUCTS IN YOUR OCCUPATION?NO DATE ASKED : 09/12/2020 ALCOHOL USE: NO. RECREATIONAL DRUG USE DRUG USE?NO LANGUAGE LANGUAGES SPOKEN:HUNGARIAN LEARNING BARRIERS / SPECIAL NEEDS BARRIERS TO LEARNING?NO HEARING IMPAIRED?YES VISION IMPAIRED?YES :CORRECTIVE LENSES COGNITIVELY IMPAIRED?NO READINESS TO LEARN?YES LEARNING PREFERENCES?NO LEARNING CAPABILITIES PRESENT?YES EMOTIONAL BARRIERS?NO SPECIAL DEVICES?YES :CANE, WHEELCHAIR TRIPE SCRAPER NEEDED?NO HOSPITALIZATION/MAJOR DIAGNOSTIC PROCEDURE SURGERIES REVIEW OF SYSTEMS CONSTITUTIONAL: ANY RECENT FEVER NO . CHILLS NO . WEIGHT CHANGE OF UNKNOWN REASONS NO . GASTROENTEROLOGY: NEW UNEXPLAINABLE CHANGES IN BOWEL CONTROL NO . CONSTIPATION NO . GENITOURINARY: ANY NEW CHANGE IN BLADDER CONTROL? NO . NEUROLOGY: NEW ONSET DIZZINESS OR NEUROLOGICAL CHANGES NOT MENTIONED NO . NEW NUMBNESS OR PAIN PATTERNS NOT MENTIONED AND PERTINENT TO TODAY'S VISIT NO . CARDIOLOGY: NEW CHEST PRESSURE NO . PATIENT DENIES NO . RESPIRATORY: UNEXPLAINABLE COUGH NO . NEW SHORTNESS OF BREATH NO . VITAL SIGNS WT 303 LBS, HT 69 IN, BMI 44.74 INDEX, BP 183/89 MM HG, HR 101 /MIN, RR 18 /MIN, TEMP 97.3 F, OXYGEN SAT % 96%, SAFE IN ENV? (Y/N) YES, NA INITIALS JHNOTIFIED MA OF BP. EULALIO VIVAS MA. EXAMINATION GENERAL EXAMINATION: GENERALNO ACUTE DISTRESS, WELL NOURISHED AND HYDRATED. PSYCHAPPROPRIATE MOOD AND AFFECT . FACE:UNREMARKABLE. NECK:NO LYMPHADENOPATHY. WELL-HEALED SURGICAL SCAR ANTERIOR AND POSTERIOR NECK.. LUNGS:CLEAR TO AUSCULTATION BILATERALLY, NO WHEEZES, RHONCHI, RALES. HEART:NO MURMURS, REGULAR RATE AND RHYTHM. MUSCULOSKELETAL:MARKED REDUCTION IN RANGE OF JOINT MOTION OF THE NECK. TRIGGER POINTS ELICITED IN THE TRAPEZIUS REGION BILATERALLY. ASSESSMENTS POSTLAMINECTOMY SYNDROME, CERVICAL - M96.1 (PRIMARY) MYALGIA, OTHER SITE - M79.18 LOW BACK PAIN - M54.5 TREATMENT POSTLAMINECTOMY SYNDROME, CERVICAL START PERCOCET TABLET, 2.5-325 MG, 1 TABLET NEEDED, ORALLY, EVERY 6 HRS MDD4, 30 DAYS, 120 START LYRICA CAPSULE, 100 MG, 1 CAPSULE, ORALLY, BID, 30 DAYS, 60 CAPSULE, REFILLS 1 NOTES: DUE TO THE FACT THAT PATIENT IS CURRENTLY BEING EVALUATED BY CARDIOLOGY AND WILL BE HAVING RESECTION OF PARIETAL TUMOR/BRAIN IN THE NEAR FUTURE I AM RECOMMENDING MEDICATION MANAGEMENT. HAS RESPONDED WELL WITH THE USE OF OXYCODONE/ACETAMINOPHEN IN THE PAST. RECOMMEND STARTING OXYCODONE 7.5 MG/325 1 EVERY 6 HOURS NEEDED FOR PAIN WITH MAXIMUM DAILY DOSE OF 4 TABLETS #120. CONTINUE LYRICA 100 MG MORNING AND NIGHT. I DID REVIEW POTENTIAL SIDE EFFECTS OF LYRICA IN REGARDS TO FLUID RETENTION IN REGARDS TO CONGESTIVE HEART FAILURE. I HAVE ALSO REVIEWED THE POTENTIAL RISKS ASSOCIATED WITH NARCOTIC PAIN MEDICATIONS. FOLLOW-UP WILL BE SCHEDULED IN 2 MONTHS. PROCEDURE CODES FA211 ESTABILISHED PATIENT [facility] CHARGE DISPOSITION & COMMUNICATION FOLLOW UP 2 MONTHS (REASON: MEDICATION MANAGEMENT/NECK PAIN/LOW BACK PAIN/MULTIPLE COMORBIDITIES/PENDING BRAIN SURGERY) ELECTRONICALLY SIGNED BY KHUSHI DALAL ON 09/18/2020 AT 03:55 PM EDT DISCLAIMER : THIS IS A VISIT SUMMARY EXTRACTED FROM THE [employer] CHART. IT IS NOT A COPY OF THE [employer] PROGRESS NOTE. CJ
== END ==
LOC: M PAIN 14:30
PROVIDERS: ATTEND Nurse Practitioner Family
DX: M96.1 Postlaminectomy syndrome, not elsewhere classified (principal); M79.18 Myalgia, other site; M54.5 Low back pain; E11.40 Type 2 diabetes mellitus with diabetic neuropathy, unspecified; E55.9 Vitamin D deficiency, unspecified; Z87.891 Personal history of nicotine dependence; E66.01 Morbid (severe) obesity due to excess calories; Z68.41 Body mass index [BMI] 40.0-44.9, adult; Z79.84 Long term (current) use of oral hypoglycemic drugs; Z79.899 Other long term (current) drug therapy

== ENCOUNTER → 2020-09-14 | Outpatient (CLI) | payer MEDICARE ==
--- NOTE | 2020-09-14 14:26 | REPVR ---
PROCEDURE INFORMATION: Exam: MR Lumbar Spine Without Contrast. Exam date and time: 09/14/2020 2:02 PM Age: 65 years old Clinical indication: Low back pain; Additional info: Radiculopathy L region TECHNIQUE: Imaging protocol: Multiplanar magnetic resonance images of the lumbar spine without contrast. COMPARISON: MRI-Spine, L.S. without con 04/17/2016 4:11 PM FINDINGS: Normal lumbar lordosis. No spondylolisthesis or compression fractures. No marrow edema. Disc heights are maintained with mild degenerative disc signal from L2 through S1. The distal spinal cord appears normal. Spinal canal narrowing is accentuated by dorsal epidural lipomatosis from L1 through S1. At L1-L2, there is no significant spinal canal or neural foraminal narrowing. At L2-L3, there is mild circumferential disc bulge. Moderate spinal canal narrowing. Minimal right inferior neural foraminal narrowing. Moderate bilateral facet arthrosis. At L3-L4, there is mild circumferential disc bulge. Moderate spinal canal narrowing. Mild left inferior neural foraminal narrowing. Moderate bilateral facet arthrosis. At L4-L5, circumferential disc bulge and a small right foraminal zone disc protrusion are present. Moderate spinal canal narrowing. Mild right neural foraminal narrowing. Severe bilateral facet arthrosis. At L5-S1, there is no significant spinal canal narrowing. Bulky severe bilateral facet arthrosis contributes to mild left neural foraminal narrowing. IMPRESSION: Lumbar spine degenerative changes accentuated by epidural lipomatosis and bulky multilevel facet arthrosis, with moderate spinal canal narrowing at L2-L3, L3-L4, and L4-L5. Electronically signed by: Mina Pulliam On 09/14/2020 14:25:55 PM
== END ==
LOC: M RAD 13:13
PROVIDERS: ATTEND Nurse Practitioner Family
DX: M54.16 Radiculopathy, lumbar region (principal); M51.36 Other intervertebral disc degeneration, lumbar region

== ENCOUNTER → 2020-10-03 | Outpatient (CLI) | payer MEDICARE ==
--- NOTE | 2020-10-09 01:30 | ECWPNPC ---
PATIENT NAME: TESSY ROBERTSON : 1955 GENDER: FEMALE VISIT DATE: 10/03/2020 DISCHARGE DATE: 10/03/20 1552 VISIT LOCKED DATE TIME: PHYSICIAN: HIRAL TELLEZ RESOURCE: HIRAL TELLEZ REASON FOR APPOINTMENT 1. CHRONIC PAIN.MED MNGT/REVIEW MRI HISTORY OF PRESENT ILLNESS GENERAL: HERE FOR FOLLOW-UP AFTER INITIAL CONSULT FOR PERSISTENT NECK AND LOW BACK PAIN. MRI OF THE CERVICAL AND LUMBAR REGION DONE AT [facility] IN [place] IS REVIEWED. 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 PATIENT IS EXPERIENCING LEFT ARM RADICULAR SYMPTOMS. HAVING A WORK-UP FOR BRAIN TUMOR WITH PET SCAN AND IMAGING IN THE NEAR FUTURE . STARTED ON LYRICA 100 MG MORNING AND NIGHT AT INITIAL VISIT 4 WEEKS AGO. PATIENT IS TAKING THIS PERIODICALLY FOR RIGHT LEG SYMPTOMS OF SHAKING. TODAY WE DISCUSSED TAKING THIS ON A REGULAR BASIS. CONTINUES TO HAVE SIGNIFICANT NECK PAIN AND LOW BACK PAIN THAT AT THIS POINT IN TIME SHE IS NOT MEDICALLY STABLE TO UNDERGO ANY INTERVENTIONAL TREATMENT. SHE HAS HAD INTERVENTIONS AT PREVIOUS PAIN PRACTICE OVER A YEAR AGO. USING PERCOCET PERIODICALLY FOR SEVERE PAIN EPISODES AND FINDS THIS HELPFUL AT REDUCING PAIN. PATIENT BRINGS IN HER MEDICINE WHICH IS APPROPRIATE FOR WHAT WAS DISPENSED. -. FALL RISK SCREENING: SCREENING : NO FALLS REPORTED IN THE LAST YEAR. PAIN SCREENING: PATIENT HAS A COMPLAINT OF ACUTE OR CHRONIC PAIN :YES LOCATION OF PAIN:NECK, LOW BACK INTENSITY OF PAIN (SCALE OF 1 TO 10):8 WHAT DOES YOUR PAIN FEEL LIKE:ACHING, BURNING, SHARP, STABBING, THROBBING, SORE, SHOOTING DURATION:CONTINOUS, CONSTANT, ALL DAY PAIN IS INCREASED BY:ACTIVITIES PAIN IS DECREASED BY:USE OF PAIN MEDICATIONS NURSING NOTE: -. PAIN CENTER INTAKE QUESTIONS: DO YOU HAVE A HISTORY OF MRSA? :NO DO YOU TAKE A BLOOD THINNERS? :NO DO YOU HAVE ANY BLEEDING DISORDERS? :NO ANY NEW NUMBNESS OR WEAKNESS IN YOUR LEGS OR ARMS? :YES PAIN IN BOTH HAND- JOINT, BOTH LEGS PAIN ANY PACEMAKER,DEFIBRILLATOR, OR DORSAL COLUMN STIMULATOR? :NO DO YOU HAVE ANY RASHES OR OPEN SORES? :NO ARE YOU ALLERGIC TO IV DYE? :NO ARE YOU DIABETIC? :YES TYPE 2 ANY NEW PROBLEMS WITH YOUR MEDICATIONS? :NO HAVE YOU RECEIVED A VACCINE IN THE PAST 30 DAYS? :NO DO YOU PLAN TO RECEIVE A VACCINE IN THE NEXT 21 DAYS? :NO DO YOU NEED ANY PRESCRIPTION? :NO DO YOU TAKE ANY IMMUNOSUPPRESSIVE MEDICATIONS? :NO IS THERE A CHANCE YOU COULD BE ? :NO ARE YOU BREAST FEEDING? :NO CURRENT MEDICATIONS TAKING METFORMIN HCL 1000 MG TABLET 1 TABLET WITH A MEAL ORALLY TWICE A DAY TAKING HYDROCHLOROTHIAZIDE 25 MG TABLET 1 TABLET IN THE MORNING ORALLY ONCE A DAY TAKING LISINOPRIL 10 MG TABLET 1 TABLET ORALLY ONCE A DAY TAKING DILTIAZEM HCL ER 360 MG CAPSULE EXTENDED RELEASE 24 HOUR 1 CAPSULE ORALLY ONCE A DAY TAKING GLIPIZIDE 5 MG TABLET 1 TABLET 30 MINUTES BEFORE BREAKFAST ORALLY ONCE A DAY TAKING LYRICA 150 MG CAPSULE 1 CAPSULE ORALLY TID, NOTES: NOT SURE TAKING METAXALONE 800 MG TABLET 1 TABLET ORALLY QD TAKING DULOXETINE HCL 60 MG CAPSULE DELAYED RELEASE PARTICLES 1 CAPSULE ORALLY ONCE A DAY TAKING MELOXICAM 7.5 MG TABLET 1 TABLET ORALLY ONCE A DAY TAKING VALACYCLOVIR HCL 1 GM TABLET 1 TABLET ORALLY BID TAKING FUROSEMIDE 40 MG TABLET 1 TABLET ORALLY ONCE A DAY TAKING LANCETS 1 TAB ORAL TAKING LORATADINE 10 MG TABLET 1 TABLET ORALLY ONCE A DAY TAKING VITAMIN D 25 MCG (1000 UT) TABLET 1 TABLET ORALLY ONCE A DAY TAKING DILTIAZEM HCL ER BEADS 360 MG CAPSULE EXTENDED RELEASE 24 HOUR 1 CAPSULE ORALLY ONCE A DAY TAKING LYRICA 100 MG CAPSULE 1 CAPSULE ORALLY BID TAKING OXYCODONE-ACETAMINOPHEN 7.5-325 MG TABLET 1 TABLET NEEDED ORALLY EVERY 6 HRS MDD4 NOT-TAKING DOXYCYCLINE HYCLATE 100 MG TABLET 1 TABLET ORALLY TWICE A DAY NOT-TAKING PERCOCET 7.5-325 MG TABLET 1 TABLET NEEDED ORALLY EVERY 6 HRS MDD4 NOT-TAKING NAPROXEN 250 MG TABLET 1 TABLET WITH FOOD OR MILK ORALLY TWICE A DAY NOT-TAKING MUPIROCIN 2 % OINTMENT 1 APPLICATION EXTERNALLY THREE TIMES A DAY NOT-TAKING CIPROFLOXACIN HCL 250 MG TABLET 1 TABLET ORALLY EVERY 12 HRS NOT-TAKING PREDNISONE 20 MG TABLET 1 TABLET ORALLY ONCE A DAY MEDICATION LIST REVIEWED AND RECONCILED WITH THE PATIENT PAST MEDICAL HISTORY DIABETIES TYPE II DIABETIC NEUROPATHY FIBROMYALGIA HTN NECK PAIN EX- SOMKER VITAMIN D DEFICIENCY HYPERLIPIDEMIA LEFT KNEE PAIN LEFT ELBOW PAIN ABRASION ON LEFT FOOT ADD- ADJUSTMENT DISORDER WITH RADICULOPATHY MYALGIA MUSCLE WEAKNESS CELLULITIS OF RIGHT LOWER LIMB BRAIN TUMOR RIGHT MODERNA 1ST: 05/17/2020 2ND: 06/14/2020 PATIENT SUFFERS FROM SEIZURES ALLERGIES N.K.D.A. SOCIAL HISTORY GENERAL: TOBACCO USE ARE YOU A:FORMER SMOKER HOW LONG HAS IT BEEN SINCE YOU LAST SMOKED?> 10 YEARS LATEX QUESTIONNAIRE LATEX ALLERGY : HAVE YOU EVER DEVELOPED ANY TYPE OF REACTION AFTER HANDLING LATEX PRODUCTS SUCH RUBBER GLOVES, CONDOMS, DIAPHRAGMS, BALLOONS, SOCKS, OR UNDERWEAR?NO LATEX ALLERGY : HAVE YOU EVER DEVELOPED ANY TYPE OF REACTION DURING OR AFTER DENTAL APPOINTMENT, VAGINAL/RECTAL EXAMINATION, SURGICAL PROCEDURE, OR ANY OTHER EXPOSURE?NO LATEX RISK : HAVE YOU EVER HAD ANY DIFFICULTY BREATHING OR HIVES AFTER EATING OR HANDLING ANY FRUITS, OR VEGETABLES; SUCH KIWI, BANANAS, STONE FRUITS, OR CHESTNUTSNO LATEX RISK : DO YOU HAVE A PREVIOUS PERSONAL HISTORY OF MORE THAN NINE SURGERIES, SPINA BIFIDA, OR REPEATED CATHERIZATIONS? NO LATEX RISK : ARE YOU FREQUENTLY EXPOSED TO LATEX PRODUCTS IN YOUR OCCUPATION?NO DATE ASKED : 10/03/2020 ALCOHOL USE: NO. RECREATIONAL DRUG USE DRUG USE?NO LANGUAGE LANGUAGES SPOKEN:[place]IMBABWE[place] LEARNING BARRIERS / SPECIAL NEEDS BARRIERS TO LEARNING?NO HEARING IMPAIRED?YES VISION IMPAIRED?YES :CORRECTIVE LENSES READING COGNITIVELY IMPAIRED?YES READINESS TO LEARN?YES LEARNING PREFERENCES?NO LEARNING CAPABILITIES PRESENT?YES EMOTIONAL BARRIERS?NO SPECIAL DEVICES?YES :CANE, WHEELCHAIR HAM CURER NEEDED?NO REVIEW OF SYSTEMS CONSTITUTIONAL: ANY RECENT FEVER NO . CHILLS NO . WEIGHT CHANGE OF UNKNOWN REASONS NO . GASTROENTEROLOGY: NEW UNEXPLAINABLE CHANGES IN BOWEL CONTROL NO . CONSTIPATION NO . GENITOURINARY: ANY NEW CHANGE IN BLADDER CONTROL? NO . NEUROLOGY: NEW ONSET DIZZINESS OR NEUROLOGICAL CHANGES NOT MENTIONED NO . NEW NUMBNESS OR PAIN PATTERNS NOT MENTIONED AND PERTINENT TO TODAY'S VISIT NO . CARDIOLOGY: NEW CHEST PRESSURE NO . PATIENT DENIES NO . RESPIRATORY: UNEXPLAINABLE COUGH NO . NEW SHORTNESS OF BREATH NO . VITAL SIGNS WT 280.4 LBS, HT 69 IN, BMI 41.40 INDEX, BP 226/101 MM HG, HR 90 /MIN, RR 18 /MIN, TEMP 98.2 F, OXYGEN SAT % 94%, SAFE IN ENV? (Y/N) YES, NA INITIALS SC 14:55MA IS AWEAR OF PT'S BP.ERVIN HERNANDEZ. EXAMINATION GENERAL EXAMINATION: GENERALAWAKE,ALERT ,PLEASANT . PSYCHAFFECT NORMAL . LUNGS:LUNG TORIBIO ARE CLEAR TO AUSCULTATION BILATERALLY. GOOD MOVEMENT OF AIR . HEART:S1, S2 IN A REGULAR RATE AND RHYTHM. NO SIGNIFICANT MURMURS, RUBS OR GALLOPS NOTED . ASSESSMENTS CHRONIC PRESCRIPTION OPIATE USE - Z79.891 (PRIMARY) POSTLAMINECTOMY SYNDROME, CERVICAL - M96.1 MYALGIA, OTHER SITE - M79.18 TREATMENT CHRONIC PRESCRIPTION OPIATE USE INCREASE LYRICA CAPSULE, 200 MG, 1 CAPSULE, ORALLY, TWICE DAILY MDD2, 30 DAYS, 60, REFILLS 2, NOTES: NOT SURE REFILL OXYCODONE-ACETAMINOPHEN TABLET, 7.5-325 MG, 1 TABLET NEEDED, ORALLY, EVERY 6 HRS MDD4, 30 DAYS, 120 LAB: ORAL FLUID TEST [facility] TEJADA 10/03/2020 3:41:50 PM > LAST DOSE: PERCOCET 10/03/2020 LYRICA 10/02/2020 NOTES: ISTOP REGISTRY REVIEWED AND DEMONSTRATES COMPLLIANCE. BRINGS IN MEDICATIONS WHICH IS APPROPRIATE FOR WHAT WAS DISPENSED. PROCEDURE CODES FA211 ESTABILISHED PATIENT [facility] CHARGE DISPOSITION & COMMUNICATION FOLLOW UP HAS APT IN NOV W DR Whitman (REASON: NECK PAIN,LBP) ELECTRONICALLY SIGNED BY KHUSHI DALAL ON 10/08/2020 AT 03:35 PM EDT DISCLAIMER : THIS IS A VISIT SUMMARY EXTRACTED FROM THE [employer] CHART. IT IS NOT A COPY OF THE [employer] PROGRESS NOTE. LUAND
== END ==
LOC: M PAIN 14:30
PROVIDERS: ATTEND Nurse Practitioner Family
DX: M96.1 Postlaminectomy syndrome, not elsewhere classified (principal); M79.18 Myalgia, other site; E11.40 Type 2 diabetes mellitus with diabetic neuropathy, unspecified; M79.7 Fibromyalgia; I10 Essential (primary) hypertension; E55.9 Vitamin D deficiency, unspecified; E78.5 Hyperlipidemia, unspecified; R56.9 Unspecified convulsions; Z87.891 Personal history of nicotine dependence; Z79.891 Long term (current) use of opiate analgesic; Z79.84 Long term (current) use of oral hypoglycemic drugs; Z79.1 Long term (current) use of non-steroidal anti-inflammatories (NSAID); Z79.899 Other long term (current) drug therapy

== ENCOUNTER 2020-11-18 20:28 | Emergency (ER) | payer MEDICARE ==
[~2020-11-18] VITALS: Ht 160 cm; Wt 109.1 kg
[2020-11-18 20:57] VITALS: BP 160/90
[2020-11-18] MEDS ORDERED: MORPHINE 2 MG/ML 1ML VIAL (J2270) IV PRN (21:25)
[2020-11-18 22:58] LABS: BASO # 0.1 10^3/uL (0.0-0.2); BASO % 0.4 % (0.0-1.0); EOS # 0.1 10^3/uL (0.0-0.5); EOS % 0.7 % (0.0-3.0); HEMATOCRIT 47.8 % (36.0-47.0); HEMOGLOBIN 15.9 g/dl (12.0-15.5); LYMPH % 19.4 % (24.0-44.0); MEAN CORPUSCULAR HEMOGLOBIN 27.5 pg (27.0-33.0); MEAN CORPUSCULAR HGB CONC 33.3 g/dl (32.0-36.5); MEAN CORPUSCULAR VOLUME 82.7 fl (80.0-96.0); MONO # 0.9 10^3/uL (0.0-0.8); MONO % 5.4 % (2.0-8.0); NEUTROPHILS # 11.5 10^3/uL (1.5-8.5); NEUTROPHILS % 73.7 % (36.0-66.0); PLATELET COUNT, AUTOMATED 352 10^3/uL (150-450); RED BLOOD COUNT 5.78 10^6/uL (4.00-5.40); WHITE BLOOD COUNT 15.6 10^3/uL (4.0-10.0)
--- NOTE | 2020-11-18 23:12 | REPVR ---
PROCEDURE INFORMATION: Exam: XR Right Hip Exam date and time: 11/18/20 (10:19pm) Age: 65 years old Clinical indication: Right hip and buttock pain. S/P fall approx. 10 days ago. TECHNIQUE: Imaging protocol: XR Right hip Views: 2 or 3 views hip with pelvis when performed COMPARISON: NM Bone Scan Whole Body of 08/09/14 FINDINGS: Bones/joints: No acute fracture nor dislocation. Mild symmetrical degenerative narrowing at each hip joint. Soft tissues: Atherosclerotic femoral artery calcifications. IMPRESSION: No acute traumatic findings. Electronically signed by: Josseline Regalado On 11/18/2020 23:12:39 PM
--- NOTE | 2020-11-18 23:21 | REPVR ---
PROCEDURE INFORMATION: Exam: XR Chest Exam date and time: 11/18/20 (10:22pm) Age: 65 years old Clinical indication: SOB TECHNIQUE: Imaging protocol: Portable CXR Views: 1 view COMPARISON: Chest films of 08/20/20 FINDINGS: Comparison is made with chest films done on 08/20/20. Stable cardiomegaly. Uncoiled thoracic aorta. No focal infiltrates. No pleural effusions. Previous cervical spine fusion surgery. Diffuse degenerative thoracic spine changes again seen. IMPRESSION: No acute findings. A similar appearance was noted 3 months ago. Electronically signed by: Josseline Regalado On 11/18/2020 23:20:52 PM
[2020-11-18] MEDS ORDERED: NORCO 5/325MG TABLET (BULK FOR ED) PO ONE (23:25)
[2020-11-18 23:34] LABS: ALBUMIN 3.6 GM/DL (3.2-5.2); ALT/SGPT 41 U/L (12-78); BILIRUBIN,DIRECT < 0.1 MG/DL (0.0-0.2); BILIRUBIN,TOTAL 0.4 MG/DL (0.2-1.0); BLOOD UREA NITROGEN 20 MG/DL (7-18); CALCIUM LEVEL 9.6 MG/DL (8.8-10.2); CARBON DIOXIDE LEVEL 26 MEQ/L (21-32); CHLORIDE LEVEL 98 MEQ/L (98-107); CK-MB VALUE MASS < 1.0 NG/ML (<3.6); CPK CREATINE PHOSPHOKINASE 43 U/L (26-192); CREATININE FOR GFR 0.85 MG/DL (0.55-1.30); GLOMERULAR FILTRATION RATE > 60.0 (>45); GLUCOSE, FASTING 345 MG/DL (70-100); MB/CK RELATIVE INDEX 2.33 (< OR =4); NT-PRO BNP 384 PG/ML (<125); SODIUM LEVEL 133 MEQ/L (136-145); THYROID STIMULATING HORMONE 0.543 uIU/ML (0.358-3.740); TOTAL PROTEIN 7.4 GM/DL (6.4-8.2); TROPONIN I < 0.02 NG/ML (< 0.10)
--- NOTE | 2020-11-19 17:52 | ECGEPIP ---
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
== END 2020-11-18 23:30 | disposition home or self-care (01) ==
LOC: M ED 20:28
DX: S70.01XA Contusion of right hip, initial encounter (principal); X58.XXXA Exposure to other specified factors, initial encounter; Y92.89 Other specified places as the place of occurrence of the external cause; E11.9 Type 2 diabetes mellitus without complications; I10 Essential (primary) hypertension; M79.7 Fibromyalgia; Z79.899 Other long term (current) drug therapy; Z79.4 Long term (current) use of insulin; Z87.891 Personal history of nicotine dependence
CPT/HCPCS: 36415; 71045; 73502; 80048; 80076; 82550; 82553; 83880; 84443; 84484; 85025; 93005; 93041; 94760; 96374; 99284; J2270

== ENCOUNTER → 2020-12-17 | Outpatient (CLI) | payer MEDICARE | LOC: M PAIN 14:30 | PROVIDERS: ATTEND Anesthesiology | DX: M54.50 Low back pain, unspecified (principal); M96.1 Postlaminectomy syndrome, not elsewhere classified; E11.40 Type 2 diabetes mellitus with diabetic neuropathy, unspecified; M79.7 Fibromyalgia; E55.9 Vitamin D deficiency, unspecified; Z87.891 Personal history of nicotine dependence; E66.01 Morbid (severe) obesity due to excess calories; Z68.41 Body mass index [BMI] 40.0-44.9, adult; Z79.84 Long term (current) use of oral hypoglycemic drugs; Z79.899 Other long term (current) drug therapy ==

== ENCOUNTER 2021-02-06 15:23 | Emergency (ER) | payer MEDICARE ==
[~2021-02-06] VITALS: Ht 175.3 cm; Wt 122.7 kg
[~2021-02-06 15:23] MED LIST changes: -DULO1CAP6; +DULO1CAP6 PO
[2021-02-06] MEDS ORDERED: OXYC7.5T3 PO (15:51)
[2021-02-06] MEDS ORDERED: SPIR-10 PO (15:51)
[2021-02-06] MEDS ORDERED: PREG200C PO (15:51)
[2021-02-06] MEDS ORDERED: ATOR1TAB19 PO (15:51)
[2021-02-06] MEDS ORDERED: MELO7.5T35 PO (15:51)
[2021-02-06] MEDS ORDERED: FURO40TA2 PO (15:51)
[2021-02-06] MEDS ORDERED: HYDROMORPHONE HCL 0.5 MG/ 0.5 ML SYRINGE (J1170 PER 1) IV PRN (16:25)
[2021-02-06 16:33] LABS: BASO % 0.4 % (0.0-1.0); EOS # 0.2 10^3/uL (0.0-0.5); HEMATOCRIT 45.4 % (36.0-47.0); HEMOGLOBIN 14.7 g/dl (12.0-15.5); LYMPH # 2.6 10^3/uL (1.5-5.0); MEAN CORPUSCULAR HEMOGLOBIN 27.6 pg (27.0-33.0); MEAN CORPUSCULAR HGB CONC 32.4 g/dl (32.0-36.5); MEAN CORPUSCULAR VOLUME 85.2 fl (80.0-96.0); MONO # 0.5 10^3/uL (0.0-0.8); MONO % 4.3 % (2.0-8.0); NEUTROPHILS # 7.4 10^3/uL (1.5-8.5); RED BLOOD COUNT 5.33 10^6/uL (4.00-5.40); WHITE BLOOD COUNT 10.7 10^3/uL (4.0-10.0)
[2021-02-06] MEDS ORDERED: ISOVUE-370 76% 100ML VIAL As Ordered ONE (16:39)
[2021-02-06] MEDS ORDERED: ONDANSETRON 4MG/2ML VIAL As Ordered ONE (16:53)
[2021-02-06] MEDS ORDERED: ONDANSETRON 4MG/2ML VIAL IV ONE ×2 (16:55→20:05)
[2021-02-06] MEDS ORDERED: hydrALAZINE 20MG/ML 1ML VIAL (J0360 PER 20MG) IV STA (17:59)
[2021-02-06 18:03] VITALS: BP 220/118
[2021-02-06] MEDS ORDERED: PROHANCE 279.3MG/ML 5ML VIAL As Ordered ONE (18:45)
[2021-02-06] MEDS ORDERED: PROHANCE 279.3MG/ML 15ML VIAL As Ordered ONE (18:46)
[2021-02-06] MEDS ORDERED: LORazepam 2 MG TAB PO ONE (19:05)
[2021-02-06] MEDS ORDERED: PROMETHAZINE INJ 25 MG/ML VIAL (J2550) IV ONE (20:05)
[2021-02-06] MEDS ORDERED: levETIRAcetam 250MG TABLET (KEPPRA) PO ONE (22:35)
[2021-02-06 23:31] VITALS: BP 146/91
[2021-02-06] MEDS ORDERED: KETO10TAB PO (23:32)
== END 2021-02-06 23:55 | disposition home or self-care (01) ==
LOC: EDBD 15:23 → M ED 15:23
DX: G44.52 New daily persistent headache (NDPH) (principal); I10 Essential (primary) hypertension; D32.9 Benign neoplasm of meninges, unspecified; E11.9 Type 2 diabetes mellitus without complications; M79.7 Fibromyalgia; R56.9 Unspecified convulsions; E78.5 Hyperlipidemia, unspecified; Z87.891 Personal history of nicotine dependence; Z79.4 Long term (current) use of insulin; Z79.899 Other long term (current) drug therapy
CPT/HCPCS: 36415; 70470; 70553; 80047; 85025; 93041; 96374; 96375; 96376; 99284; A9576; J0360; J1170; J2405; Q9967

== ENCOUNTER 2021-02-27 09:34 | Emergency (ER) | payer MEDICARE ==
[~2021-02-27] VITALS: Ht 175.3 cm; Wt 122.7 kg
[~2021-02-27 09:34] MED LIST changes: +ATOR1TAB19 PO; +FURO40TA2 PO; +MELO7.5T35 PO; +OXYC7.5T3 PO; +PREG200C PO; +SPIR-10 PO
[2021-02-27 10:15] LABS: VENOUS BASE EXCESS 2.4 (-2.0-2.0); VENOUS HCO3 25.5 MEQ/L (23.0-27.0); VENOUS O2 SATURATION 98.6 % (60.0-80.0); VENOUS PARTIAL PRESSURE CO2 34.9 mmHg (38.0-50.0); VENOUS PARTIAL PRESSURE O2 135.9 mmHg (30.0-50.0); VENOUS PH 7.481 UNITS (7.330-7.430); VENOUS STANDARD HCO3 26.6 MEQ/L; VENOUS TOTAL CO2 26.5 MEQ/L (24.0-28.0)
[2021-02-27 10:21] LABS: BASO # 0.1 10^3/uL (0.0-0.2); BASO % 0.4 % (0.0-1.0); EOS # 0.2 10^3/uL (0.0-0.5); EOS % 1.1 % (0.0-3.0); HEMATOCRIT 43.4 % (36.0-47.0); HEMOGLOBIN 14.5 g/dl (12.0-15.5); LYMPH # 2.3 10^3/uL (1.5-5.0); MEAN CORPUSCULAR HEMOGLOBIN 27.9 pg (27.0-33.0); MEAN CORPUSCULAR HGB CONC 33.4 g/dl (32.0-36.5); MEAN CORPUSCULAR VOLUME 83.6 fl (80.0-96.0); MONO # 0.6 10^3/uL (0.0-0.8); MONO % 4.6 % (2.0-8.0); NEUTROPHILS # 10.4 10^3/uL (1.5-8.5); NEUTROPHILS % 76.7 % (36.0-66.0); PLATELET COUNT, AUTOMATED 396 10^3/uL (150-450); RED BLOOD COUNT 5.19 10^6/uL (4.00-5.40); WHITE BLOOD COUNT 13.5 10^3/uL (4.0-10.0)
[2021-02-27] MEDS ORDERED: PERCOCET 5MG/325MG TAB PO ONE (10:25)
[2021-02-27 10:51] LABS: ALBUMIN 3.6 GM/DL (3.2-5.2); BILIRUBIN,DIRECT 0.2 MG/DL (0.0-0.2); BILIRUBIN,TOTAL 0.5 MG/DL (0.2-1.0); CALCIUM LEVEL 10.1 MG/DL (8.8-10.2); CREATININE FOR GFR 1.07 MG/DL (0.55-1.30); POTASSIUM SERUM 3.8 MEQ/L (3.5-5.1); THYROID STIMULATING HORMONE 0.412 uIU/ML (0.358-3.740); TOTAL PROTEIN 7.9 GM/DL (6.4-8.2)
[2021-02-27] MEDS ORDERED: ISOVUE-370 76% 100ML VIAL As Ordered ONE (11:00)
[2021-02-27] MEDS ORDERED: SPIRONOLACTONE 25 MG TAB PO STA (11:52)
[2021-02-27] MEDS ORDERED: FUROSEMIDE 40 MG TAB PO ONE (11:55)
[2021-02-27] MEDS ORDERED: diltiaZEM **CD** 180 MG CAP PO ONE (11:55)
[2021-02-27 11:59] VITALS: BP 217/122
[2021-02-27 12:47] VITALS: BP 229/105
== END 2021-02-27 12:55 | disposition home or self-care (01) ==
LOC: EDBD 09:34 → M ED 09:34
DX: R06.00 Dyspnea, unspecified (principal); I10 Essential (primary) hypertension; E11.65 Type 2 diabetes mellitus with hyperglycemia; Z91.19 Patient's noncompliance with other medical treatment and regimen; R56.9 Unspecified convulsions; M79.7 Fibromyalgia; Z87.891 Personal history of nicotine dependence
CPT/HCPCS: 36415; 71045; 71275; 80048; 80076; 82803; 83880; 84443; 84484; 85025; 87040; 87798; 93005; 93041; 99285; Q9967

== ENCOUNTER → 2021-03-10 | Outpatient (CLI) | payer MEDICARE | LOC: M PAIN 14:00 | PROVIDERS: ATTEND Nurse Practitioner Family | DX: M54.50 Low back pain, unspecified (principal); M96.1 Postlaminectomy syndrome, not elsewhere classified; E11.40 Type 2 diabetes mellitus with diabetic neuropathy, unspecified; M79.7 Fibromyalgia; E55.9 Vitamin D deficiency, unspecified; Z86.59 Personal history of other mental and behavioral disorders; Z87.891 Personal history of nicotine dependence; Z79.84 Long term (current) use of oral hypoglycemic drugs; Z79.899 Other long term (current) drug therapy ==

== ENCOUNTER → 2021-04-30 | Outpatient (CLI) | payer MEDICARE ==
[2021-04-30 17:15] LABS: BASO % 0.3 % (0.0-1.0); EOS # 0.2 10^3/uL (0.0-0.5); EOS % 1.8 % (0.0-3.0); HEMATOCRIT 41.9 % (36.0-47.0); HEMOGLOBIN 13.4 g/dl (12.0-15.5); LYMPH # 2.3 10^3/uL (1.5-5.0); MEAN CORPUSCULAR HEMOGLOBIN 28.1 pg (27.0-33.0); MEAN CORPUSCULAR VOLUME 87.8 fl (80.0-96.0); MONO # 0.5 10^3/uL (0.0-0.8); NEUTROPHILS # 8.4 10^3/uL (1.5-8.5); NEUTROPHILS % 73.6 % (36.0-66.0); PLATELET COUNT, AUTOMATED 373 10^3/uL (150-450); RED BLOOD COUNT 4.77 10^6/uL (4.00-5.40); WHITE BLOOD COUNT 11.5 10^3/uL (4.0-10.0)
[2021-04-30 17:45] LABS: ALBUMIN 3.5 GM/DL (3.2-5.2); BILIRUBIN,TOTAL 0.4 MG/DL (0.2-1.0); CALCIUM LEVEL 9.6 MG/DL (8.8-10.2); CHOLESTEROL RISK RATIO 3.972 (<5); CREATININE FOR GFR 1.01 MG/DL (0.55-1.30); GLOMERULAR FILTRATION RATE 58.7 (>45); POTASSIUM SERUM 4.2 MEQ/L (3.5-5.1); TOTAL PROTEIN 7.3 GM/DL (6.4-8.2)
== END ==
LOC: M PLALAB 14:46
PROVIDERS: ATTEND Family Medicine
DX: E11.65 Type 2 diabetes mellitus with hyperglycemia (principal)

== ENCOUNTER → 2021-06-25 | Outpatient (CLI) | payer MEDICARE | LOC: M PAIN 13:30 | PROVIDERS: ATTEND Anesthesiology | DX: M54.50 Low back pain, unspecified (principal); M96.1 Postlaminectomy syndrome, not elsewhere classified; M47.816 Spondylosis without myelopathy or radiculopathy, lumbar region; E11.40 Type 2 diabetes mellitus with diabetic neuropathy, unspecified; M79.7 Fibromyalgia; I10 Essential (primary) hypertension; M54.2 Cervicalgia; E55.9 Vitamin D deficiency, unspecified; E78.5 Hyperlipidemia, unspecified; Z87.891 Personal history of nicotine dependence; Z79.891 Long term (current) use of opiate analgesic; Z79.84 Long term (current) use of oral hypoglycemic drugs; Z79.899 Other long term (current) drug therapy ==

== ENCOUNTER → 2021-08-07 | Outpatient (CLI) | payer MEDICARE | LOC: M PAIN 10:00 | PROVIDERS: ATTEND Anesthesiology | DX: M54.50 Low back pain, unspecified (principal); M96.1 Postlaminectomy syndrome, not elsewhere classified; M51.16 Intervertebral disc disorders with radiculopathy, lumbar region; Z87.891 Personal history of nicotine dependence; Z79.84 Long term (current) use of oral hypoglycemic drugs; E11.9 Type 2 diabetes mellitus without complications; Z79.891 Long term (current) use of opiate analgesic; Z79.899 Other long term (current) drug therapy ==

== ENCOUNTER 2021-08-26 18:34 | Emergency (ER) | payer MEDICARE ==
[~2021-08-26] VITALS: Ht 172.7 cm; Wt 120.5 kg
[2021-08-26] MEDS ORDERED: MORPHINE 2 MG/ML 1ML VIAL IV PRN (20:35)
[2021-08-26] MEDS ORDERED: ONDANSETRON 4MG/2ML VIAL IV ONE (20:35)
[2021-08-26] MEDS ORDERED: NS 1,000 ML IV ONE (20:35)
[2021-08-26 21:04] LABS: BASO # 0.1 10^3/uL (0.0-0.2); BASO % 0.4 % (0.0-1.0); EOS # 0.2 10^3/uL (0.0-0.5); EOS % 1.6 % (0.0-3.0); HEMATOCRIT 45.3 % (36.0-47.0); LYMPH # 2.1 10^3/uL (1.5-5.0); LYMPH % 18.3 % (24.0-44.0); MEAN CORPUSCULAR HEMOGLOBIN 27.8 pg (27.0-33.0); MEAN CORPUSCULAR HGB CONC 33.1 g/dl (32.0-36.5); MONO # 0.6 10^3/uL (0.0-0.8); MONO % 5.2 % (2.0-8.0); NEUTROPHILS # 8.5 10^3/uL (1.5-8.5); NEUTROPHILS % 74.2 % (36.0-66.0); PLATELET COUNT, AUTOMATED 330 10^3/uL (150-450); RED BLOOD COUNT 5.39 10^6/uL (4.00-5.40); WHITE BLOOD COUNT 11.5 10^3/uL (4.0-10.0)
[2021-08-26 22:11] VITALS: BP 155/95
== END 2021-08-26 22:30 | disposition left against medical advice (07) ==
LOC: EDBD 18:34 → M ED 18:34
DX: R06.02 Shortness of breath (principal); E11.9 Type 2 diabetes mellitus without complications; I10 Essential (primary) hypertension; M43.20 Fusion of spine, site unspecified; Z79.899 Other long term (current) drug therapy; Z79.4 Long term (current) use of insulin; Z79.84 Long term (current) use of oral hypoglycemic drugs
CPT/HCPCS: 71045; 80047; 83605; 85025; 87486; 87581; 87633; 87798; 93005; 93041; 96361; 96374; 96375; 99284; J2270; J2405

== ENCOUNTER → 2021-10-15 | Outpatient (CLI) | payer MEDICARE | LOC: M PAIN 12:45 | PROVIDERS: ATTEND Anesthesiology | DX: G89.29 Other chronic pain (principal); M51.16 Intervertebral disc disorders with radiculopathy, lumbar region; M96.1 Postlaminectomy syndrome, not elsewhere classified; E11.40 Type 2 diabetes mellitus with diabetic neuropathy, unspecified; M79.7 Fibromyalgia; I10 Essential (primary) hypertension; M54.2 Cervicalgia; E55.9 Vitamin D deficiency, unspecified; E78.5 Hyperlipidemia, unspecified; M25.562 Pain in left knee; M25.522 Pain in left elbow; M79.18 Myalgia, other site; M62.81 Muscle weakness (generalized); R56.9 Unspecified convulsions; Z86.011 Personal history of benign neoplasm of the brain; Z87.891 Personal history of nicotine dependence; Z79.84 Long term (current) use of oral hypoglycemic drugs; Z79.891 Long term (current) use of opiate analgesic; Z79.899 Other long term (current) drug therapy; Z98.1 Arthrodesis status ==

== ENCOUNTER 2021-10-29 16:04 | Emergency (ER) | payer MEDICARE ==
[2021-10-29 16:18] VITALS: BP 131/85
[2021-10-29] MEDS ORDERED: BACT800T5 (16:18)
[2021-10-29] MEDS ORDERED: ONDA4TAB6 PO (22:30)
== END 2021-10-29 20:25 | disposition left against medical advice (07) ==
LOC: M ED 16:04
DX: Z53.29 Procedure and treatment not carried out because of patient's decision for other reasons (principal)

== ENCOUNTER 2021-10-29 20:38 | Emergency (ER) | payer MEDICARE ==
[~2021-10-29 20:38] MED LIST changes: +BACT800T5
[2021-10-29 20:57] VITALS: BP 178/122
[2021-10-29] MEDS ORDERED: ONDANSETRON 4MG 2ML VIAL IV ONE (21:10)
[2021-10-29 21:38] LABS: BASO % 0.3 % (0.0-1.0); EOS # 0.1 10^3/uL (0.0-0.5); EOS % 0.5 % (0.0-3.0); HEMATOCRIT 47.5 % (36.0-47.0); LYMPH # 2.2 10^3/uL (1.5-5.0); LYMPH % 18.8 % (24.0-44.0); MEAN CORPUSCULAR HEMOGLOBIN 27.9 pg (27.0-33.0); MEAN CORPUSCULAR HGB CONC 33.7 g/dl (32.0-36.5); MEAN CORPUSCULAR VOLUME 82.8 fl (80.0-96.0); MONO # 0.6 10^3/uL (0.0-0.8); MONO % 5.3 % (2.0-8.0); NEUTROPHILS # 8.8 10^3/uL (1.5-8.5); NEUTROPHILS % 74.9 % (36.0-66.0); PLATELET COUNT, AUTOMATED 373 10^3/uL (150-450); RED BLOOD COUNT 5.74 10^6/uL (4.00-5.40); WHITE BLOOD COUNT 11.8 10^3/uL (4.0-10.0)
[2021-10-29] MEDS ORDERED: ONDANSETRON 4MG ORAL DISINTEGRATING TAB PO ONE (22:00)
[2021-10-29 22:07] LABS: CK-MB VALUE MASS < 1.0 NG/ML (<3.6); CPK CREATINE PHOSPHOKINASE 52 U/L (26-192); MB/CK RELATIVE INDEX 1.92 (< OR =4)
[2021-10-29 22:13] LABS: ALBUMIN 3.6 GM/DL (3.2-5.2); BILIRUBIN,DIRECT 0.2 MG/DL (0.0-0.2); BILIRUBIN,TOTAL 0.6 MG/DL (0.2-1.0); CALCIUM LEVEL 10.1 MG/DL (8.8-10.2); CREATININE FOR GFR 1.06 MG/DL (0.55-1.30); GLOMERULAR FILTRATION RATE 55.6 (>45); POTASSIUM SERUM 3.7 MEQ/L (3.5-5.1); THYROID STIMULATING HORMONE 0.342 uIU/ML (0.358-3.740)
[2021-10-29] MEDS ORDERED: ONDA4TAB6 PO (22:30)
== END 2021-10-29 22:43 | disposition left against medical advice (07) ==
LOC: EDBD 20:38 → M ED 20:38
DX: R07.9 Chest pain, unspecified (principal); R11.0 Nausea; E11.9 Type 2 diabetes mellitus without complications; I10 Essential (primary) hypertension; E78.5 Hyperlipidemia, unspecified; G62.9 Polyneuropathy, unspecified; M79.7 Fibromyalgia; M54.50 Low back pain, unspecified; D49.6 Neoplasm of unspecified behavior of brain; Z79.899 Other long term (current) drug therapy; Z79.4 Long term (current) use of insulin; Z79.84 Long term (current) use of oral hypoglycemic drugs

== ENCOUNTER 2021-10-30 20:47 | Emergency (ER) | payer MEDICARE ==
[~2021-10-30] VITALS: Ht 172.7 cm; Wt 113.6 kg
[~2021-10-30 20:47] MED LIST changes: +ONDA4TAB6 PO
[2021-10-30 20:59] VITALS: BP 187/98
== END 2021-10-30 21:48 | disposition left against medical advice (07) ==
LOC: M ED 20:47
DX: Z53.29 Procedure and treatment not carried out because of patient's decision for other reasons (principal)

== ENCOUNTER 2021-10-30 22:49 | Emergency (ER) | payer MEDICARE ==
[~2021-10-30] VITALS: Ht 172.7 cm; Wt 115.9 kg
== END 2021-10-30 23:14 | disposition left against medical advice (07) ==
LOC: M ED 22:49
DX: Z53.29 Procedure and treatment not carried out because of patient's decision for other reasons (principal)

== ENCOUNTER 2021-10-31 15:27 | Emergency (ER) | payer MEDICARE ==
[2021-10-31 15:40] VITALS: BP 180/100
[2021-10-31] MEDS ORDERED: MORPHINE 4 MG/ML 1ML VIAL/SYRINGE IV ONE (16:15)
[2021-10-31] MEDS ORDERED: NS 1,000 ML IV SCH (16:15)
[2021-10-31] MEDS ORDERED: ONDANSETRON 4MG 2ML VIAL IV ONE (16:15)
[2021-10-31 16:45] LABS: BASO % 0.3 % (0.0-1.0); EOS # 0.1 10^3/uL (0.0-0.5); EOS % 0.8 % (0.0-3.0); HEMATOCRIT 44.4 % (36.0-47.0); HEMOGLOBIN 15.1 g/dl (12.0-15.5); LYMPH # 1.9 10^3/uL (1.5-5.0); LYMPH % 19.7 % (24.0-44.0); MEAN CORPUSCULAR HEMOGLOBIN 27.9 pg (27.0-33.0); MEAN CORPUSCULAR VOLUME 82.1 fl (80.0-96.0); MONO # 0.6 10^3/uL (0.0-0.8); MONO % 6.4 % (2.0-8.0); NEUTROPHILS # 6.9 10^3/uL (1.5-8.5); NEUTROPHILS % 72.4 % (36.0-66.0); PLATELET COUNT, AUTOMATED 371 10^3/uL (150-450); RED BLOOD COUNT 5.41 10^6/uL (4.00-5.40); WHITE BLOOD COUNT 9.6 10^3/uL (4.0-10.0)
[2021-10-31 17:12] LABS: ALBUMIN 3.6 GM/DL (3.2-5.2); ALT/SGPT 26 U/L (12-78); BILIRUBIN,DIRECT 0.2 MG/DL (0.0-0.2); BILIRUBIN,TOTAL 0.6 MG/DL (0.2-1.0); BLOOD UREA NITROGEN 18 MG/DL (7-18); CALCIUM LEVEL 9.9 MG/DL (8.8-10.2); CARBON DIOXIDE LEVEL 27 MEQ/L (21-32); CHLORIDE LEVEL 96 MEQ/L (98-107); CREATININE FOR GFR 0.94 MG/DL (0.55-1.30); GLOMERULAR FILTRATION RATE > 60.0 (>45); GLUCOSE, FASTING 324 MG/DL (70-100); LIPASE 61 U/L (73-393); POTASSIUM SERUM 3.7 MEQ/L (3.5-5.1); SODIUM LEVEL 132 MEQ/L (136-145); TOTAL PROTEIN 7.7 GM/DL (6.4-8.2)
[2021-10-31 17:25] LABS: CK-MB VALUE MASS < 1.0 NG/ML (<3.6); CPK CREATINE PHOSPHOKINASE 63 U/L (26-192); MB/CK RELATIVE INDEX 1.59 (< OR =4)
== END 2021-10-31 17:10 | disposition left against medical advice (07) ==
LOC: M ED 15:27
DX: R10.9 Unspecified abdominal pain (principal); R11.2 Nausea with vomiting, unspecified; E11.9 Type 2 diabetes mellitus without complications; I10 Essential (primary) hypertension; E55.9 Vitamin D deficiency, unspecified; E78.9 Disorder of lipoprotein metabolism, unspecified; F90.9 Attention-deficit hyperactivity disorder, unspecified type; M79.7 Fibromyalgia; G93.89 Other specified disorders of brain; Z87.891 Personal history of nicotine dependence; Z79.899 Other long term (current) drug therapy; Z79.84 Long term (current) use of oral hypoglycemic drugs; Z79.4 Long term (current) use of insulin

== ENCOUNTER 2021-11-03 17:22 | Emergency (ER) | payer MEDICARE ==
[~2021-11-03] VITALS: Ht 172.7 cm; Wt 118.2 kg
[2021-11-03 17:45] VITALS: BP 160/78
[2021-11-03 18:16] LABS: HEMATOCRIT 42.4 % (36.0-47.0); HEMOGLOBIN 14.3 g/dl (12.0-15.5); MEAN CORPUSCULAR HEMOGLOBIN 28.1 pg (27.0-33.0); MEAN CORPUSCULAR HGB CONC 33.7 g/dl (32.0-36.5); MEAN CORPUSCULAR VOLUME 83.5 fl (80.0-96.0); PLATELET COUNT, AUTOMATED 345 10^3/uL (150-450); RED BLOOD COUNT 5.08 10^6/uL (4.00-5.40); WHITE BLOOD COUNT 14.9 10^3/uL (4.0-10.0)
[2021-11-03 18:51] LABS: RSV AMPLIFICATION NEGATIVE (NEGATIVE)
[2021-11-03 19:13] LABS: ACETAMINOPHEN LEVEL < 2.0 UG/ML (10.0-30.0); ALBUMIN 3.6 GM/DL (3.2-5.2); ALT/SGPT 21 U/L (12-78); BILIRUBIN,DIRECT < 0.1 MG/DL (0.0-0.2); BILIRUBIN,TOTAL 0.2 MG/DL (0.2-1.0); BLOOD UREA NITROGEN 24 MG/DL (7-18); CALCIUM LEVEL 9.2 MG/DL (8.8-10.2); CARBON DIOXIDE LEVEL 29 MEQ/L (21-32); CHLORIDE LEVEL 96 MEQ/L (98-107); CREATININE FOR GFR 1.34 MG/DL (0.55-1.30); ETHYL ALCOHOL (ETHANOL) 0.005 % (0.000-0.010); GLOMERULAR FILTRATION RATE 42.4 (>45); GLUCOSE, FASTING 438 MG/DL (70-100); POTASSIUM SERUM 3.7 MEQ/L (3.5-5.1); SALICYLATE LEVEL < 1.7 MG/DL (5.0-30.0); SODIUM LEVEL 132 MEQ/L (136-145); THYROID STIMULATING HORMONE 0.119 uIU/ML (0.358-3.740); TOTAL PROTEIN 7.3 GM/DL (6.4-8.2)
[2021-11-03] MEDS ORDERED: HumuLIN R (REGULAR) INSULIN (NovoLIN R) **100U/ML** PER UNIT IV ONE (19:25)
[2021-11-03 19:38] LABS: AMPHETAMINES LEVEL URINE NEGATIVE (NEGATIVE); BARBITURATES URINE NEGATIVE (NEGATIVE); BENZODIAZEPINES URINE NEGATIVE (NEGATIVE); CANNABINOIDS URINE NEGATIVE (NEGATIVE); COCAINE METABOLITE URINE NEGATIVE (NEGATIVE); METHADONE URINE NEGATIVE (NEGATIVE); OPIATES URINE NEGATIVE (NEGATIVE); PHENCYCLIDINE URINE NEGATIVE (NEGATIVE)
[2021-11-03] MEDS ORDERED: levETIRAcetam 250MG TABLET (KEPPRA) PO ONE (20:20)
[2021-11-03] MEDS ORDERED: PREGABALIN 100 MG CAP (LYRICA) PO ONE (20:20)
[2021-11-03] MEDS ORDERED: ONDANSETRON 4MG ORAL DISINTEGRATING TAB PO ONE (20:25)
[2021-11-03] MEDS ORDERED: PERCOCET 5MG/325MG TAB PO ONE (20:25)
[2021-11-03] MEDS ORDERED: BACTRIM 160MG/800MG DS TAB PO ONE (20:25)
== END 2021-11-04 00:41 | disposition home or self-care (01) ==
LOC: M ED 17:22
DX: Z04.6 Encounter for general psychiatric examination, requested by authority (principal); E11.9 Type 2 diabetes mellitus without complications; I10 Essential (primary) hypertension; E55.9 Vitamin D deficiency, unspecified; E78.9 Disorder of lipoprotein metabolism, unspecified; F90.9 Attention-deficit hyperactivity disorder, unspecified type; M79.7 Fibromyalgia; M54.2 Cervicalgia; Z79.899 Other long term (current) drug therapy; Z79.84 Long term (current) use of oral hypoglycemic drugs; Z79.4 Long term (current) use of insulin; Z87.891 Personal history of nicotine dependence
CPT/HCPCS: 80048; 80076; 80143; 80307; 82077; 84443; 85027; 87631; 96374; 99284; J1815

== ENCOUNTER → 2022-01-07 | Outpatient (CLI) | payer MEDICARE | LOC: M PAIN 11:45 | PROVIDERS: ATTEND Anesthesiology | DX: R52 Pain, unspecified (principal); E11.40 Type 2 diabetes mellitus with diabetic neuropathy, unspecified; M79.7 Fibromyalgia; I10 Essential (primary) hypertension; Z87.891 Personal history of nicotine dependence; Z79.84 Long term (current) use of oral hypoglycemic drugs; Z79.899 Other long term (current) drug therapy ==

== ENCOUNTER → 2022-02-04 | Outpatient (CLI) | payer MEDICARE | LOC: M PAIN 16:15 | PROVIDERS: ATTEND Anesthesiology | DX: R52 Pain, unspecified (principal); E11.40 Type 2 diabetes mellitus with diabetic neuropathy, unspecified; M79.7 Fibromyalgia; I10 Essential (primary) hypertension; Z86.59 Personal history of other mental and behavioral disorders; Z87.891 Personal history of nicotine dependence; Z79.84 Long term (current) use of oral hypoglycemic drugs; Z79.899 Other long term (current) drug therapy ==

== ENCOUNTER → 2022-02-09 | Outpatient (CLI) | payer MEDICARE | LOC: M PAIN 15:15 | PROVIDERS: ATTEND Anesthesiology | DX: M54.50 Low back pain, unspecified (principal); E11.40 Type 2 diabetes mellitus with diabetic neuropathy, unspecified; M79.7 Fibromyalgia; I10 Essential (primary) hypertension; M54.2 Cervicalgia; E55.9 Vitamin D deficiency, unspecified; E78.5 Hyperlipidemia, unspecified; M25.562 Pain in left knee; M25.522 Pain in left elbow; M79.10 Myalgia, unspecified site; Z86.011 Personal history of benign neoplasm of the brain; R56.9 Unspecified convulsions; Z79.891 Long term (current) use of opiate analgesic; Z79.84 Long term (current) use of oral hypoglycemic drugs; Z79.899 Other long term (current) drug therapy; Z87.891 Personal history of nicotine dependence ==

== ENCOUNTER 2022-02-15 11:14 | Inpatient (IN) | payer MEDICARE ==
[2022-02-15] VITALS (20 sets, daily range): BP systolic 118–249; BP diastolic 60–155; O2SAT 100
[~2022-02-15] VITALS: Ht 172.7 cm; Wt 128.4 kg
[2022-02-15] MEDS ORDERED: propofoL 1,000 MG in IV 1 EA IV SCH ×2 (11:50→17:20)
[2022-02-15 11:55] LABS: ABG BASE EXCESS -26.2 (-2.0-2.0); ABG HCO3 8.1 MEQ/L (22.0-26.0); ABG PARTIAL PRESSURE CO2 49.1 mmHg (35.0-45.0); ABG PARTIAL PRESSURE O2 257.2 mmHg (75.0-100.0); ABG STANDARD HCO3 7.2 MEQ/L (22.0-26.0); ABG TOTAL CO2 9.6 MEQ/L (23.0-31.0)
[2022-02-15 11:57] LABS: ABG pH (ARTERIAL) 6.837 UNITS (7.350-7.450)
[2022-02-15] MEDS ORDERED: SODIUM BICARBONATE 8.4% INJ 50ML SYRINGE IV STA ×2 (11:59)
[2022-02-15] MEDS ORDERED: D5W/0.9% SODIUM CHLORIDE 1,000 ML IV SCH (12:10)
[2022-02-15] MEDS ORDERED: ISOVUE-370 76% 100ML VIAL As Ordered ONE (12:10)
[2022-02-15 12:14] LABS: HEMATOCRIT 47.6 % (36.0-47.0); HEMOGLOBIN 14.1 g/dl (12.0-15.5); MEAN CORPUSCULAR HEMOGLOBIN 28.3 pg (27.0-33.0); MEAN CORPUSCULAR HGB CONC 29.6 g/dl (32.0-36.5); MEAN CORPUSCULAR VOLUME 95.4 fl (80.0-96.0); PLATELET COUNT, AUTOMATED 275 10^3/uL (150-450); RED BLOOD COUNT 4.99 10^6/uL (4.00-5.40); WHITE BLOOD COUNT 24.2 10^3/uL (4.0-10.0)
[2022-02-15] MEDS ORDERED: cefTRIAXone SOD 2 GM in D5W MINI-BAG PLUS 50 ML IV ONE (12:30)
[2022-02-15 12:49] LABS: ATYPICAL LYMPH 7 % (0-5); LYMPHOCYTES 29 % (16-44); METAMYELOCYTES 1 % (0-0); MONOCYTES 4 % (0-5); NEUTROPHILS 52 % (28-66)
[2022-02-15 12:49] LABS: CK-MB VALUE MASS 2.9 NG/ML (<3.6); MB/CK RELATIVE INDEX 1.79 (< OR =4)
[2022-02-15 12:52] LABS: PLATELET CLUMPS SMALL AMT; PLATELET ESTIMATE NORMAL (NORMAL)
[2022-02-15 13:25] LABS: ABG BASE EXCESS -13.6 (-2.0-2.0); ABG HCO3 14.2 MEQ/L (22.0-26.0); ABG O2 SATURATION 93.9 % (95.0-99.0); ABG PARTIAL PRESSURE CO2 39.3 mmHg (35.0-45.0); ABG PARTIAL PRESSURE O2 84.5 mmHg (75.0-100.0); ABG STANDARD HCO3 14.2 MEQ/L (22.0-26.0); ABG TOTAL CO2 15.4 MEQ/L (23.0-31.0)
[2022-02-15 13:26] LABS: ACETAMINOPHEN LEVEL < 2.0 UG/ML (10.0-20.0); BILIRUBIN,DIRECT 0.1 MG/DL (<0.4); ETHYL ALCOHOL (ETHANOL) 0.003 % (0.000-0.010); FREE T4 0.99 NG/DL (0.89-1.76); SALICYLATE LEVEL < 3.0 MG/DL (<30); THYROID STIMULATING HORMONE 3.436 uIU/ML (0.55-4.78)
[2022-02-15 13:28] LABS: ABG pH (ARTERIAL) 7.175 UNITS (7.350-7.450)
[2022-02-15 13:32] LABS: LIPASE 76 U/L (12-53)
[2022-02-15] MEDS ORDERED: HumuLIN R (REGULAR) INSULIN (NovoLIN R) **100U/ML** PER UNIT IV ONE (13:35)
[2022-02-15 13:37] LABS: ALBUMIN 3.1 G/DL (3.2-5.2); ALKALINE PHOSPHATASE 185 U/L (46-116); ALT/SGPT 123 U/L (7.0-40); AST/SGOT 221 U/L (<34); BILIRUBIN,TOTAL 0.3 MG/DL (0.3-1.2); BLOOD UREA NITROGEN 12 MG/DL (9-23); CALCIUM LEVEL 8.6 MG/DL (8.3-10.6); CARBON DIOXIDE LEVEL 14 MMOL/L (20-31); CHLORIDE LEVEL 100 MMOL/L (98-107); CREATININE FOR GFR 0.82 MG/DL (0.55-1.30); GLOMERULAR FILTRATION RATE > 60.0 (>45); GLUCOSE, FASTING 521 MG/DL (74-106); POTASSIUM SERUM 3.6 MMOL/L (3.5-5.1); SODIUM LEVEL 138 MMOL/L (136-145); TOTAL PROTEIN 6.7 G/DL (5.7-8.2)
[2022-02-15 13:54] LABS: AMPHETAMINES LEVEL URINE NEGATIVE (NEGATIVE); BARBITURATES URINE NEGATIVE (NEGATIVE); BENZODIAZEPINES URINE NEGATIVE (NEGATIVE); CANNABINOIDS URINE NEGATIVE (NEGATIVE); COCAINE METABOLITE URINE NEGATIVE (NEGATIVE); METHADONE URINE NEGATIVE (NEGATIVE); OPIATES URINE NEGATIVE (NEGATIVE); PHENCYCLIDINE URINE NEGATIVE (NEGATIVE)
[2022-02-15 14:38] LABS: CK-MB VALUE MASS 10.4 NG/ML (<3.6); CPK CREATINE PHOSPHOKINASE 228 U/L (34-145); MB/CK RELATIVE INDEX 4.56 (< OR =4)
[2022-02-15] MEDS ORDERED: KEPP1TAB PO (14:45)
[2022-02-15] MEDS ORDERED: med rec comment (14:47)
[2022-02-15] MEDS ORDERED: HOME MED LIST COMPLETE! XX SCH (14:50)
[2022-02-15] MEDS ORDERED: CLOPIDOGREL 300 MG TAB (PLAVIX) NG STA (15:17)
[2022-02-15] MEDS ORDERED: ASPIRIN 81MG CHEW TABLET NG STA (15:17)
[2022-02-15] MEDS ORDERED: HEPARIN DRIP 25,000 UNITS in IV 1 EA IV SCH (15:25)
[2022-02-15] MEDS ORDERED: HEPARIN SOD (PORCINE) 5000UNITS/ML 1ML VIAL/SYRINGE IV ONE (15:25)
[2022-02-15 15:58] LABS: INR 1.25
[2022-02-15 15:59] LABS: PARTIAL THROMBOPLASTIN TIME 36.8 SECONDS (24.8-34.2)
[2022-02-15] MEDS ORDERED: ACETAMINOPHEN 650MG SUPP PR PRN (17:25)
[2022-02-15] MEDS ORDERED: ACETAMINOPHEN 650MG SUPP PR ONE (17:25)
[2022-02-15] MEDS ORDERED: FENTANYL DRIP LOCK BOX KEY 1 EACH XX PRN (17:25)
[2022-02-15] MEDS ORDERED: NS 1,000 ML IV SCH (17:25)
[2022-02-15] MEDS ORDERED: HEPARIN SOD (PORCINE) 5000UNITS/ML 1ML VIAL/SYRINGE IV PRN (17:55)
[2022-02-15] MEDS ORDERED: fentaNYL CITRATE/NaCl 1,000 MCG in IV 1 EA IV SCH (18:00)
[2022-02-15 18:08] LABS: ABG PARTIAL PRESSURE CO2 39.6 mmHg (35.0-45.0)
[2022-02-15 18:09] LABS: ABG BASE EXCESS -6.2 (-2.0-2.0); ABG HCO3 19.5 MEQ/L (22.0-26.0); ABG O2 SATURATION 94.3 % (95.0-99.0); ABG PARTIAL PRESSURE O2 72.7 mmHg (75.0-100.0); ABG STANDARD HCO3 19.4 MEQ/L (22.0-26.0); ABG TOTAL CO2 20.8 MEQ/L (23.0-31.0); ABG pH (ARTERIAL) 7.311 UNITS (7.350-7.450)
[2022-02-15] MEDS: MIDAZOLAM 100MG/100ML-0.9%NACL 100 MG in IV 1 EA IV SCH (19:30)
[2022-02-15] MEDS: ALBUTEROL SULFATE 2.5 MG/0.5 ML INH NEB SOLN NEB SCH (19:36)
[2022-02-15] MEDS: fentaNYL CITRATE/NaCl 1,000 MCG in IV 1 EA IV SCH (20:17)
[2022-02-15 20:26] LABS: BASO # 0.1 10^3/uL (0.0-0.2); BASO % 0.3 % (0.0-1.0); HEMATOCRIT 46.9 % (36.0-47.0); HEMOGLOBIN 15.4 g/dl (12.0-15.5); LYMPH # 1.1 10^3/uL (1.5-5.0); LYMPH % 4.1 % (24.0-44.0); MEAN CORPUSCULAR HEMOGLOBIN 28.5 pg (27.0-33.0); MEAN CORPUSCULAR HGB CONC 32.8 g/dl (32.0-36.5); MEAN CORPUSCULAR VOLUME 86.7 fl (80.0-96.0); MONO # 0.7 10^3/uL (0.0-0.8); MONO % 2.8 % (2.0-8.0); NEUTROPHILS # 24.3 10^3/uL (1.5-8.5); NEUTROPHILS % 92.1 % (36.0-66.0); PLATELET COUNT, AUTOMATED 266 10^3/uL (150-450); RED BLOOD COUNT 5.41 10^6/uL (4.00-5.40); WHITE BLOOD COUNT 26.4 10^3/uL (4.0-10.0)
[2022-02-15] MEDS: INSULIN REGULAR IN 0.9 % NACL 100 UNIT in IV 1 EA IV SCH ×2 (20:27)
[2022-02-15] MEDS: AZITHROMYCIN INJ 500 MG, VIAL MATE ADAPTER 1 EACH in NS 250 ML IV SCH (20:32)
[2022-02-15] MEDS: NITROGLYCERIN/D5W 100MCG/ML 25 MG in IV 1 EA IV SCH (20:36)
[2022-02-15 20:44] LABS: INR 1.23; PROTHROMBIN TIME 15.8 SECONDS (12.5-14.5)
[2022-02-15 21:06] LABS: CK-MB VALUE MASS 40.3 NG/ML (<3.6)
[2022-02-15] MEDS: CISATRACURIUM 200 MG in NS 480 ML IV SCH (21:06)
[2022-02-15] MEDS: INSULIN IV RATE CHANGE DOCUMENTATION ML/HR XX SCH ×2 (21:10→23:09)
[2022-02-15 21:14] LABS: ABG BASE EXCESS -7.5 (-2.0-2.0); ABG HCO3 18.9 MEQ/L (22.0-26.0); ABG O2 SATURATION 98.3 % (95.0-99.0); ABG PARTIAL PRESSURE CO2 41.2 mmHg (35.0-45.0); ABG PARTIAL PRESSURE O2 120.8 mmHg (75.0-100.0); ABG STANDARD HCO3 18.6 MEQ/L (22.0-26.0); ABG TOTAL CO2 20.1 MEQ/L (23.0-31.0); ABG pH (ARTERIAL) 7.279 UNITS (7.350-7.450)
[2022-02-15 21:20] LABS: ALBUMIN 3.2 G/DL (3.2-5.2); BILIRUBIN,TOTAL 0.2 MG/DL (0.3-1.2); CALCIUM LEVEL 8.1 MG/DL (8.3-10.6); CREATININE FOR GFR 1.2 MG/DL (0.55-1.30); MB/CK RELATIVE INDEX 3.8 (< OR =4); POTASSIUM SERUM 3.9 MMOL/L (3.5-5.1); TOTAL PROTEIN 6.5 G/DL (5.7-8.2)
[2022-02-15 21:26] LABS: D-DIMER QUANT > 4000 ng/ml (<500)
[2022-02-15 22:01] LABS: ACETONE/KETONE 0.19 MMOL/L (0.02-0.27)
[2022-02-15] MEDS: CHLORHEXIDINE GLUCONATE 0.12 % 15ML UDC (PERIDEX ORAL RINSE) MT SCH (23:09)
[2022-02-16] VITALS (95 sets, daily range): BP systolic 99–183; BP diastolic 54–87
[2022-02-16 00:23] LABS: INR 1.18; PROTHROMBIN TIME 15.3 SECONDS (12.5-14.5)
[2022-02-16 00:25] LABS: PARTIAL THROMBOPLASTIN TIME 68.3 SECONDS (24.8-34.2)
[2022-02-16 00:31] LABS: ABG BASE EXCESS -7.8 (-2.0-2.0); ABG HCO3 18.9 MEQ/L (22.0-26.0); ABG O2 SATURATION 96.6 % (95.0-99.0); ABG PARTIAL PRESSURE CO2 42.3 mmHg (35.0-45.0); ABG PARTIAL PRESSURE O2 91.8 mmHg (75.0-100.0); ABG STANDARD HCO3 18.3 MEQ/L (22.0-26.0); ABG TOTAL CO2 20.2 MEQ/L (23.0-31.0); ABG pH (ARTERIAL) 7.267 UNITS (7.350-7.450)
[2022-02-16 00:36] LABS: HEMATOCRIT 47.7 % (36.0-47.0); HEMOGLOBIN 15.1 g/dl (12.0-15.5); MEAN CORPUSCULAR HGB CONC 31.7 g/dl (32.0-36.5); MEAN CORPUSCULAR VOLUME 88.3 fl (80.0-96.0); PLATELET COUNT, AUTOMATED 249 10^3/uL (150-450); WHITE BLOOD COUNT 22.1 10^3/uL (4.0-10.0)
[2022-02-16] MEDS: INSULIN IV RATE CHANGE DOCUMENTATION ML/HR XX SCH ×8 (01:04→16:26)
[2022-02-16 01:29] LABS: ALBUMIN 3.1 G/DL (3.2-5.2); BILIRUBIN,TOTAL 0.2 MG/DL (0.3-1.2); CALCIUM LEVEL 7.9 MG/DL (8.3-10.6); CREATININE FOR GFR 1.4 MG/DL (0.55-1.30); GLOMERULAR FILTRATION RATE 40.2 (>45); MAGNESIUM LEVEL 1.7 MG/DL (1.8-2.4); PHOSPHORUS LEVEL 5.4 MG/DL (2.4-5.1); POTASSIUM SERUM 2.7 MMOL/L (3.5-5.1); TOTAL PROTEIN 6.4 G/DL (5.7-8.2)
[2022-02-16] MEDS ORDERED: MAG SULF 1GM/100ML (MAG RUN) 1 GM in IV 1 EA IV ONE (02:00)
[2022-02-16] MEDS: KCL 20MEQ IN 100ML SWI (KRUN) 20 MEQ in IV 1 EA IV SCH ×8 (03:13→06:42)
[2022-02-16] MEDS: INSULIN REGULAR IN 0.9 % NACL 100 UNIT in IV 1 EA IV SCH ×4 (03:17→09:14)
[2022-02-16 03:58] LABS: ABG BASE EXCESS -8.5 (-2.0-2.0); ABG HCO3 18.1 MEQ/L (22.0-26.0); ABG PARTIAL PRESSURE CO2 41.1 mmHg (35.0-45.0); ABG PARTIAL PRESSURE O2 98.2 mmHg (75.0-100.0); ABG STANDARD HCO3 17.7 MEQ/L (22.0-26.0); ABG TOTAL CO2 19.3 MEQ/L (23.0-31.0); ABG pH (ARTERIAL) 7.261 UNITS (7.350-7.450); HEMATOCRIT 45.3 % (36.0-47.0); HEMOGLOBIN 14.5 g/dl (12.0-15.5); MEAN CORPUSCULAR HEMOGLOBIN 28.1 pg (27.0-33.0); MEAN CORPUSCULAR VOLUME 87.8 fl (80.0-96.0); PLATELET COUNT, AUTOMATED 265 10^3/uL (150-450); RED BLOOD COUNT 5.16 10^6/uL (4.00-5.40); WHITE BLOOD COUNT 19.8 10^3/uL (4.0-10.0)
[2022-02-16 04:09] LABS: INR 1.19; PROTHROMBIN TIME 15.4 SECONDS (12.5-14.5)
[2022-02-16 04:10] LABS: PARTIAL THROMBOPLASTIN TIME 70.6 SECONDS (24.8-34.2)
[2022-02-16] MEDS: fentaNYL CITRATE/NaCl 1,000 MCG in IV 1 EA IV SCH ×2 (04:18→22:31)
[2022-02-16 04:30] LABS: MAGNESIUM LEVEL 1.8 MG/DL (1.8-2.4)
[2022-02-16 04:46] LABS: ALBUMIN 2.8 G/DL (3.2-5.2); BILIRUBIN,TOTAL 0.2 MG/DL (0.3-1.2); CALCIUM LEVEL 7.7 MG/DL (8.3-10.6); CREATININE FOR GFR 1.53 MG/DL (0.55-1.30); GLOMERULAR FILTRATION RATE 36.3 (>45); PHOSPHORUS LEVEL 4.8 MG/DL (2.4-5.1); POTASSIUM SERUM 3.2 MMOL/L (3.5-5.1); TOTAL PROTEIN 5.9 G/DL (5.7-8.2)
[2022-02-16] MEDS: ALBUTEROL SULFATE 2.5 MG/0.5 ML INH NEB SOLN NEB SCH ×4 (06:19→19:25)
[2022-02-16 08:09] LABS: ABG BASE EXCESS -7.9 (-2.0-2.0); ABG HCO3 18.7 MEQ/L (22.0-26.0); ABG O2 SATURATION 97.9 % (95.0-99.0); ABG PARTIAL PRESSURE CO2 42.2 mmHg (35.0-45.0); ABG STANDARD HCO3 18.2 MEQ/L (22.0-26.0); ABG pH (ARTERIAL) 7.265 UNITS (7.350-7.450)
[2022-02-16 08:14] LABS: HEMATOCRIT 44.6 % (36.0-47.0); HEMOGLOBIN 14.3 g/dl (12.0-15.5); MEAN CORPUSCULAR HEMOGLOBIN 28.2 pg (27.0-33.0); MEAN CORPUSCULAR HGB CONC 32.1 g/dl (32.0-36.5); PLATELET COUNT, AUTOMATED 261 10^3/uL (150-450); RED BLOOD COUNT 5.07 10^6/uL (4.00-5.40); WHITE BLOOD COUNT 18.3 10^3/uL (4.0-10.0)
[2022-02-16] MEDS ORDERED: NS 1,000 ML IV SCH (08:15)
[2022-02-16 08:27] LABS: INR 1.12; PROTHROMBIN TIME 14.6 SECONDS (12.5-14.5)
[2022-02-16 08:28] LABS: PARTIAL THROMBOPLASTIN TIME 61.7 SECONDS (24.8-34.2)
[2022-02-16] MEDS: PANTOPRAZOLE 40MG VIAL IV SCH (08:39)
[2022-02-16] MEDS: levETIRAcetam 250MG TABLET (KEPPRA) GT SCH ×2 (08:40→22:09)
[2022-02-16] MEDS: ASPIRIN 81MG CHEW TABLET GT SCH (08:40)
[2022-02-16] MEDS: CLOPIDOGREL 75 MG TAB GT SCH (08:40)
[2022-02-16 08:42] LABS: MAGNESIUM LEVEL 1.6 MG/DL (1.8-2.4)
[2022-02-16 08:43] LABS: ALBUMIN 2.7 G/DL (3.2-5.2); BILIRUBIN,TOTAL 0.2 MG/DL (0.3-1.2); CALCIUM LEVEL 7.9 MG/DL (8.3-10.6); CREATININE FOR GFR 1.69 MG/DL (0.55-1.30); GLOMERULAR FILTRATION RATE 32.3 (>45); PHOSPHORUS LEVEL 4.4 MG/DL (2.4-5.1); POTASSIUM SERUM 3.6 MMOL/L (3.5-5.1); TOTAL PROTEIN 5.8 G/DL (5.7-8.2)
[2022-02-16] MEDS: CHLORHEXIDINE GLUCONATE 0.12 % 15ML UDC (PERIDEX ORAL RINSE) MT SCH ×2 (08:50→22:08)
[2022-02-16] MEDS: MIDAZOLAM 100MG/100ML-0.9%NACL 100 MG in IV 1 EA IV SCH ×2 (09:14→18:07)
[2022-02-16] MEDS: CISATRACURIUM 200 MG in NS 480 ML IV SCH ×2 (10:13→18:09)
[2022-02-16 12:18] LABS: ABG BASE EXCESS -6.6 (-2.0-2.0); ABG HCO3 19.5 MEQ/L (22.0-26.0); ABG O2 SATURATION 98.8 % (95.0-99.0); ABG PARTIAL PRESSURE CO2 41.4 mmHg (35.0-45.0); ABG PARTIAL PRESSURE O2 137.5 mmHg (75.0-100.0); ABG STANDARD HCO3 19.1 MEQ/L (22.0-26.0); ABG TOTAL CO2 20.8 MEQ/L (23.0-31.0); ABG pH (ARTERIAL) 7.292 UNITS (7.350-7.450)
[2022-02-16 12:20] LABS: HEMATOCRIT 41.9 % (36.0-47.0); HEMOGLOBIN 13.5 g/dl (12.0-15.5); MEAN CORPUSCULAR HEMOGLOBIN 28.2 pg (27.0-33.0); MEAN CORPUSCULAR HGB CONC 32.2 g/dl (32.0-36.5); MEAN CORPUSCULAR VOLUME 87.7 fl (80.0-96.0); PLATELET COUNT, AUTOMATED 256 10^3/uL (150-450); RED BLOOD COUNT 4.78 10^6/uL (4.00-5.40); WHITE BLOOD COUNT 19.3 10^3/uL (4.0-10.0)
[2022-02-16 12:41] LABS: INR 1.09; PROTHROMBIN TIME 14.3 SECONDS (12.5-14.5)
[2022-02-16 12:42] LABS: PARTIAL THROMBOPLASTIN TIME 53.4 SECONDS (24.8-34.2)
[2022-02-16 13:09] LABS: MAGNESIUM LEVEL 1.6 MG/DL (1.8-2.4)
[2022-02-16 13:20] LABS: ALBUMIN 2.5 G/DL (3.2-5.2); BILIRUBIN,TOTAL 0.2 MG/DL (0.3-1.2); CALCIUM LEVEL 7.8 MG/DL (8.3-10.6); CREATININE FOR GFR 1.92 MG/DL (0.55-1.30); GLOMERULAR FILTRATION RATE 27.9 (>45); PHOSPHORUS LEVEL 4.9 MG/DL (2.4-5.1); POTASSIUM SERUM 3.6 MMOL/L (3.5-5.1); TOTAL PROTEIN 5.3 G/DL (5.7-8.2)
[2022-02-16] MEDS ORDERED: DEXTROSE 50% 50 ML SYRINGE IV PRN (13:20)
[2022-02-16] MEDS ORDERED: GLUCAGON INJ 1MG VIAL SC PRN (13:20)
[2022-02-16] MEDS ORDERED: GLUCOSE 4GM CHEW TABLET PO PRN (13:20)
[2022-02-16] MEDS: cefTRIAXone SOD 1 GM in D5W MINI-BAG PLUS 50 ML IV SCH (13:43)
[2022-02-16] MEDS: HEPARIN DRIP 25,000 UNITS in IV 1 EA IV SCH (15:10)
[2022-02-16 16:24] LABS: ABG BASE EXCESS -7.8 (-2.0-2.0); ABG HCO3 18.7 MEQ/L (22.0-26.0); ABG O2 SATURATION 96.5 % (95.0-99.0); ABG PARTIAL PRESSURE CO2 41.5 mmHg (35.0-45.0); ABG PARTIAL PRESSURE O2 87.9 mmHg (75.0-100.0); ABG STANDARD HCO3 18.2 MEQ/L (22.0-26.0); ABG TOTAL CO2 19.9 MEQ/L (23.0-31.0); ABG pH (ARTERIAL) 7.271 UNITS (7.350-7.450)
[2022-02-16 16:26] LABS: HEMATOCRIT 41.1 % (36.0-47.0); HEMOGLOBIN 13.1 g/dl (12.0-15.5); MEAN CORPUSCULAR HEMOGLOBIN 28.3 pg (27.0-33.0); MEAN CORPUSCULAR HGB CONC 31.9 g/dl (32.0-36.5); MEAN CORPUSCULAR VOLUME 88.8 fl (80.0-96.0); PLATELET COUNT, AUTOMATED 197 10^3/uL (150-450); RED BLOOD COUNT 4.63 10^6/uL (4.00-5.40); WHITE BLOOD COUNT 17.4 10^3/uL (4.0-10.0)
[2022-02-16 16:55] LABS: MAGNESIUM LEVEL 1.5 MG/DL (1.8-2.4)
[2022-02-16 16:57] LABS: ALBUMIN 2.4 G/DL (3.2-5.2); BILIRUBIN,TOTAL 0.2 MG/DL (0.3-1.2); CALCIUM LEVEL 7.5 MG/DL (8.3-10.6); CREATININE FOR GFR 2.12 MG/DL (0.55-1.30); GLOMERULAR FILTRATION RATE 24.9 (>45); PHOSPHORUS LEVEL 6.5 MG/DL (2.4-5.1); POTASSIUM SERUM 3.8 MMOL/L (3.5-5.1); TOTAL PROTEIN 5.2 G/DL (5.7-8.2)
[2022-02-16 17:30] LABS: INR 1.18; PROTHROMBIN TIME 15.3 SECONDS (12.5-14.5)
[2022-02-16 17:31] LABS: PARTIAL THROMBOPLASTIN TIME 52.8 SECONDS (24.8-34.2)
[2022-02-16] MEDS ORDERED: NS 1,000 ML IV ONE (18:55)
[2022-02-16] MEDS: NITROGLYCERIN/D5W 100MCG/ML 25 MG in IV 1 EA IV SCH (19:21)
[2022-02-16 19:59] LABS: HEMATOCRIT 39.9 % (36.0-47.0); HEMOGLOBIN 12.6 g/dl (12.0-15.5); MEAN CORPUSCULAR HEMOGLOBIN 28.1 pg (27.0-33.0); MEAN CORPUSCULAR HGB CONC 31.6 g/dl (32.0-36.5); MEAN CORPUSCULAR VOLUME 88.9 fl (80.0-96.0); PLATELET COUNT, AUTOMATED 190 10^3/uL (150-450); RED BLOOD COUNT 4.49 10^6/uL (4.00-5.40); WHITE BLOOD COUNT 17.1 10^3/uL (4.0-10.0)
[2022-02-16 20:04] LABS: ABG BASE EXCESS -6.3 (-2.0-2.0); ABG HCO3 20.4 MEQ/L (22.0-26.0); ABG O2 SATURATION 96.5 % (95.0-99.0); ABG PARTIAL PRESSURE CO2 45.2 mmHg (35.0-45.0); ABG PARTIAL PRESSURE O2 88.2 mmHg (75.0-100.0); ABG STANDARD HCO3 19.3 MEQ/L (22.0-26.0); ABG TOTAL CO2 21.8 MEQ/L (23.0-31.0); ABG pH (ARTERIAL) 7.273 UNITS (7.350-7.450)
[2022-02-16 20:17] LABS: INR 1.12; PROTHROMBIN TIME 14.6 SECONDS (12.5-14.5)
[2022-02-16 20:19] LABS: PARTIAL THROMBOPLASTIN TIME 62.6 SECONDS (24.8-34.2)
[2022-02-16 21:07] LABS: ALBUMIN 2.3 G/DL (3.2-5.2); BILIRUBIN,TOTAL 0.2 MG/DL (0.3-1.2); CALCIUM LEVEL 7.5 MG/DL (8.3-10.6); CREATININE FOR GFR 2.35 MG/DL (0.55-1.30); GLOMERULAR FILTRATION RATE 22.1 (>45); MAGNESIUM LEVEL 1.5 MG/DL (1.8-2.4); POTASSIUM SERUM 3.9 MMOL/L (3.5-5.1); TOTAL PROTEIN 5.1 G/DL (5.7-8.2)
[2022-02-16] MEDS: AZITHROMYCIN INJ 500 MG, VIAL MATE ADAPTER 1 EACH in NS 250 ML IV SCH (22:09)
[2022-02-17] VITALS (24 sets, daily range): BP systolic 102–155; BP diastolic 53–76
[2022-02-17 00:22] LABS: HEMATOCRIT 38.4 % (36.0-47.0); MEAN CORPUSCULAR HGB CONC 31.3 g/dl (32.0-36.5); MEAN CORPUSCULAR VOLUME 89.5 fl (80.0-96.0); PLATELET COUNT, AUTOMATED 184 10^3/uL (150-450); RED BLOOD COUNT 4.29 10^6/uL (4.00-5.40); WHITE BLOOD COUNT 16.6 10^3/uL (4.0-10.0)
[2022-02-17 01:09] LABS: MAGNESIUM LEVEL 1.5 MG/DL (1.8-2.4); PHOSPHORUS LEVEL 7.2 MG/DL (2.4-5.1)
[2022-02-17 05:09] LABS: ABG BASE EXCESS -7.2 (-2.0-2.0); ABG O2 SATURATION 97.4 % (95.0-99.0); ABG PARTIAL PRESSURE CO2 40.6 mmHg (35.0-45.0); ABG PARTIAL PRESSURE O2 96.7 mmHg (75.0-100.0); ABG STANDARD HCO3 18.7 MEQ/L (22.0-26.0); ABG TOTAL CO2 20.2 MEQ/L (23.0-31.0); ABG pH (ARTERIAL) 7.288 UNITS (7.350-7.450)
[2022-02-17 05:12] LABS: HEMATOCRIT 37.8 % (36.0-47.0); HEMOGLOBIN 11.9 g/dl (12.0-15.5); MEAN CORPUSCULAR HEMOGLOBIN 28.1 pg (27.0-33.0); MEAN CORPUSCULAR HGB CONC 31.5 g/dl (32.0-36.5); MEAN CORPUSCULAR VOLUME 89.2 fl (80.0-96.0); PLATELET COUNT, AUTOMATED 186 10^3/uL (150-450); RED BLOOD COUNT 4.24 10^6/uL (4.00-5.40); WHITE BLOOD COUNT 17.2 10^3/uL (4.0-10.0)
[2022-02-17 06:07] LABS: CALCIUM LEVEL 7.5 MG/DL (8.3-10.6); CREATININE FOR GFR 3.09 MG/DL (0.55-1.30); GLOMERULAR FILTRATION RATE 16.1 (>45); POTASSIUM SERUM 4.6 MMOL/L (3.5-5.1)
[2022-02-17] MEDS: NITROGLYCERIN/D5W 100MCG/ML 25 MG in IV 1 EA IV SCH (06:19)
[2022-02-17] MEDS ORDERED: METOPROLOL 5 MG/5 ML VIAL IV ONE ×2 (07:30→07:45)
[2022-02-17] MEDS: ALBUTEROL SULFATE 2.5 MG/0.5 ML INH NEB SOLN NEB SCH ×4 (08:10→20:05)
[2022-02-17] MEDS: CLOPIDOGREL 75 MG TAB GT SCH (08:24)
[2022-02-17] MEDS: ASPIRIN 81MG CHEW TABLET GT SCH (08:24)
[2022-02-17] MEDS: levETIRAcetam 250MG TABLET (KEPPRA) GT SCH ×2 (08:24→21:18)
[2022-02-17] MEDS: METOPROLOL TART 25 MG TABLET PO SCH ×2 (08:25→21:18)
[2022-02-17] MEDS: INSULIN IV RATE CHANGE DOCUMENTATION ML/HR XX SCH ×2 (08:29→09:04)
[2022-02-17] MEDS: PANTOPRAZOLE 40MG VIAL IV SCH (08:53)
[2022-02-17] MEDS: CHLORHEXIDINE GLUCONATE 0.12 % 15ML UDC (PERIDEX ORAL RINSE) MT SCH ×2 (08:53→21:16)
[2022-02-17] MEDS: MIDAZOLAM 100MG/100ML-0.9%NACL 100 MG in IV 1 EA IV SCH (09:30)
[2022-02-17] MEDS: fentaNYL CITRATE/NaCl 1,000 MCG in IV 1 EA IV SCH (09:32)
[2022-02-17] MEDS ORDERED: GLUCAGON INJ 1MG VIAL SC PRN (11:00)
[2022-02-17] MEDS ORDERED: DEXTROSE 50% 50 ML SYRINGE IV PRN (11:00)
[2022-02-17] MEDS ORDERED: GLUCOSE 4GM CHEW TABLET PO PRN (11:00)
[2022-02-17] MEDS: ACETAMINOPHEN 325 MG/10.15 ML UDC GT PRN ×2 (11:46→23:15)
[2022-02-17] MEDS: HEPARIN DRIP 25,000 UNITS in IV 1 EA IV SCH (11:59)
[2022-02-17] MEDS: INSULIN LISPRO (NovoLOG) PER UNIT SC SCH ×3 (12:00→23:15)
[2022-02-17] MEDS ORDERED: FUROSEMIDE 100MG/10ML VIAL (J1940) IV ONE (12:00)
[2022-02-17] MEDS: cefTRIAXone SOD 1 GM in D5W MINI-BAG PLUS 50 ML IV SCH (12:48)
[2022-02-17 15:20] LABS: HEMATOCRIT 33.5 % (36.0-47.0); HEMOGLOBIN 10.7 g/dl (12.0-15.5); MEAN CORPUSCULAR HEMOGLOBIN 28.2 pg (27.0-33.0); MEAN CORPUSCULAR HGB CONC 31.9 g/dl (32.0-36.5); MEAN CORPUSCULAR VOLUME 88.4 fl (80.0-96.0); PLATELET COUNT, AUTOMATED 175 10^3/uL (150-450); RED BLOOD COUNT 3.79 10^6/uL (4.00-5.40); WHITE BLOOD COUNT 15.4 10^3/uL (4.0-10.0)
[2022-02-17] MEDS ORDERED: NS 500 ML IV ONE (16:25)
[2022-02-17] MEDS: PIPERACILLIN/TAZOBACTAM SOD 2.25 GM in D5W MINI-BAG PLUS 50 ML IV SCH (16:51)
[2022-02-17] MEDS ORDERED: ACETAMINOPHEN 1000MG 100ML IV BAG IV ONE (17:30)
[2022-02-17] MEDS ORDERED: METOPROLOL TART 25 MG TABLET PO SCH (21:00)
[2022-02-17] MEDS: AZITHROMYCIN INJ 500 MG, VIAL MATE ADAPTER 1 EACH in NS 250 ML IV SCH (21:27)
[2022-02-17 23:25] LABS: HEMATOCRIT 33.5 % (36.0-47.0); HEMOGLOBIN 10.6 g/dl (12.0-15.5); MEAN CORPUSCULAR HEMOGLOBIN 28.2 pg (27.0-33.0); MEAN CORPUSCULAR HGB CONC 31.6 g/dl (32.0-36.5); MEAN CORPUSCULAR VOLUME 89.1 fl (80.0-96.0); PLATELET COUNT, AUTOMATED 165 10^3/uL (150-450); RED BLOOD COUNT 3.76 10^6/uL (4.00-5.40); WHITE BLOOD COUNT 15.9 10^3/uL (4.0-10.0)
[2022-02-18] VITALS (13 sets, daily range): BP systolic 120–182; BP diastolic 56–87
[2022-02-18] MEDS: PIPERACILLIN/TAZOBACTAM SOD 2.25 GM in D5W MINI-BAG PLUS 50 ML IV SCH ×2 (01:27→08:22)
[2022-02-18] MEDS: HEPARIN DRIP 25,000 UNITS in IV 1 EA IV SCH (04:25)
[2022-02-18] MEDS: INSULIN LISPRO (NovoLOG) PER UNIT SC SCH ×2 (06:05→12:06)
[2022-02-18] MEDS: ACETAMINOPHEN 325 MG/10.15 ML UDC GT PRN (06:05)
[2022-02-18 06:07] LABS: ABG HCO3 17.5 MEQ/L (22.0-26.0); ABG O2 SATURATION 97.6 % (95.0-99.0); ABG PARTIAL PRESSURE CO2 35.8 mmHg (35.0-45.0); ABG PARTIAL PRESSURE O2 108.2 mmHg (75.0-100.0); ABG TOTAL CO2 18.6 MEQ/L (23.0-31.0); ABG pH (ARTERIAL) 7.306 UNITS (7.350-7.450)
[2022-02-18 06:17] LABS: HEMOGLOBIN 10.8 g/dl (12.0-15.5); MEAN CORPUSCULAR HEMOGLOBIN 28.3 pg (27.0-33.0); MEAN CORPUSCULAR HGB CONC 31.8 g/dl (32.0-36.5); MEAN CORPUSCULAR VOLUME 89.2 fl (80.0-96.0); PLATELET COUNT, AUTOMATED 155 10^3/uL (150-450); RED BLOOD COUNT 3.81 10^6/uL (4.00-5.40); WHITE BLOOD COUNT 16.3 10^3/uL (4.0-10.0)
[2022-02-18] MEDS: ALBUTEROL SULFATE 2.5 MG/0.5 ML INH NEB SOLN NEB SCH ×2 (07:48→11:45)
[2022-02-18] MEDS: PANTOPRAZOLE 40MG VIAL IV SCH (08:22)
[2022-02-18] MEDS: CHLORHEXIDINE GLUCONATE 0.12 % 15ML UDC (PERIDEX ORAL RINSE) MT SCH (08:23)
[2022-02-18] MEDS: CLOPIDOGREL 75 MG TAB GT SCH (08:23)
[2022-02-18] MEDS: ASPIRIN 81MG CHEW TABLET GT SCH (08:23)
[2022-02-18] MEDS: METOPROLOL TART 25 MG TABLET PO SCH (08:23)
[2022-02-18] MEDS: levETIRAcetam 250MG TABLET (KEPPRA) GT SCH (08:23)
[2022-02-18 08:42] LABS: MAGNESIUM LEVEL 1.6 MG/DL (1.8-2.4)
[2022-02-18 08:43] LABS: CALCIUM LEVEL 8.3 MG/DL (8.3-10.6); CREATININE FOR GFR 5.42 MG/DL (0.55-1.30); GLOMERULAR FILTRATION RATE 8.4 (>45); POTASSIUM SERUM 4.1 MMOL/L (3.5-5.1)
[2022-02-18] MEDS ORDERED: FUROSEMIDE 100MG/10ML VIAL (J1940) IV ONE (09:05)
[2022-02-18] MEDS ORDERED: MAG SULF 1GM/100ML (MAG RUN) 1 GM in IV 1 EA IV ONE (10:00)
[2022-02-18] MEDS ORDERED: SCOPOLAMINE 1MG TRANSDERMAL PATCH TOP PRN ×2 (14:00→16:00)
[2022-02-18] MEDS ORDERED: ONDANSETRON 4MG 2ML VIAL IV PRN ×2 (14:00→16:00)
[2022-02-18] MEDS ORDERED: BISACODYL 10 MG SUPP PR PRN (16:00)
[2022-02-18] MEDS ORDERED: HYOSCYAMINE SULFATE 0.125 MG SUBL TABLET PO PRN (16:00)
[2022-02-18] MEDS ORDERED: ATROPINE SULFATE 1% OP SOLN 2 ML BTL SL PRN (16:00)
[2022-02-18] MEDS ORDERED: ACETAMINOPHEN TAB 650MG DOSE (2X325MG) PO PRN (16:00)
[2022-02-18] MEDS ORDERED: MORPHINE SULF IN 0.9% NACL 100 MG in IV 1 EA IV SCH ×2 (17:00)
[2022-02-19] MEDS: MORPHINE 2 MG/ML 1ML VIAL IV PRN ×3 (07:26→12:41)
[2022-02-19] MEDS: LORazepam 2 MG/ML VIAL IV PRN ×2 (07:45→09:57)
[2022-02-19] MEDS ORDERED: LORazepam 2 MG/ML VIAL IV PRN (12:45)
[2022-02-19] MEDS ORDERED: MORPHINE SULF IN 0.9% NACL 100 MG in IV 1 EA IV SCH ×2 (13:00)
[2022-02-19] MEDS ORDERED: ACETAMINOPHEN 650MG SUPP PR PRN (17:30)
== END 2022-02-19 21:03 | disposition expired ==
LOC: EDSEX 11:14 → EDBD 11:14 → M ED 11:14 → ENRESERV 17:04 → M ICU 17:19
PROVIDERS: ADMIT Internal Medicine; ATTEND Internal Medicine
PROC: 02HV33Z Insertion of Infusion Device into Superior Vena Cava, Percutaneous Approach (ICD-10-PCS; principal; 2022-02-15)
PROC: 04HY32Z Insertion of Monitoring Device into Lower Artery, Percutaneous Approach (ICD-10-PCS; 2022-02-15)
PROC: B246ZZZ Ultrasonography of Right and Left Heart (ICD-10-PCS; 2022-02-15)
PROC: 5A1945Z Respiratory Ventilation, 24-96 Consecutive Hours (ICD-10-PCS; 2022-02-15)
DX: I21.A1 Myocardial infarction type 2 (principal); J96.01 Acute respiratory failure with hypoxia; I26.99 Other pulmonary embolism without acute cor pulmonale; I63.81 Other cerebral infarction due to occlusion or stenosis of small artery; E87.20 Acidosis, unspecified; J98.11 Atelectasis; J81.1 Chronic pulmonary edema; N17.9 Acute kidney failure, unspecified; G93.40 Encephalopathy, unspecified; Z51.5 Encounter for palliative care; Z66 Do not resuscitate; E11.65 Type 2 diabetes mellitus with hyperglycemia; F41.9 Anxiety disorder, unspecified; M19.90 Unspecified osteoarthritis, unspecified site; I10 Essential (primary) hypertension; M54.9 Dorsalgia, unspecified; G89.29 Other chronic pain; M47.812 Spondylosis without myelopathy or radiculopathy, cervical region; I95.9 Hypotension, unspecified; I46.9 Cardiac arrest, cause unspecified; I44.7 Left bundle-branch block, unspecified; E87.6 Hypokalemia; R56.9 Unspecified convulsions; R19.7 Diarrhea, unspecified; R00.0 Tachycardia, unspecified; R57.0 Cardiogenic shock; E83.42 Hypomagnesemia; Z79.899 Other long term (current) drug therapy; Z87.891 Personal history of nicotine dependence